=== PATIENT | female | born 1940 | race Caucasian/White ===

== ENCOUNTER 2019-04-13 11:05 | Inpatient (IN) | payer MEDICARE, MEDICAID, SELFPAY ==
[2019-04-13] VITALS (18 sets, daily range): BP systolic 136–194; BP diastolic 68–108; PULSE 70–98; RESP 16–32; TEMP 36.6–36.7; O2SAT 92–98; BMI 22.6
--- NOTE | 2019-04-13 11:22 | ED_ITS ---
Entered by Sharita Hale, acting as scribe for HPI - SOB/Dyspnea General: Chief Complaint: Shortness of Breath/Dyspnea Stated Complaint: SOB Time Seen by Provider: 04/13/19 11:22 Source: patient, family and RN notes reviewed Mode of arrival: wheelchair Limitations: no limitations History of Present Illness: HPI Narrative: 78 yo female presents to ED with complaints of shortness of breath. The family states the patient has been sick for 1 week. They said the patient has COPD and she has been congested. With oxygen, the patient is at 92% on 2L at triage. History is otherwise limited secondary the patient's respiratory distress. Most information is offered by family. MD elicited complaint: shortness of breath Pertinent past history: COPD Onset (ago): week(s) (1) Context: recent illness Timing: constant Severity: severe Exacerbating factors: exertion, movement and coughing Relieving factors: nothing Known history of: COPD Associated symptoms: Reports chest congestion and other (weakness); Deny abdominal pain, chest pain, diaphoresis, dizziness, extremity pain, fever(s), hemoptysis, nausea, palpitations, polydipsia, syncope or vomiting Treatment prior to arrival: oxygen Related Data: Home oxygen amount: 2 liters Review of Systems General: Reports: other (negative unless marked) Const: Denies: fever, chills, body aches, fatigue or diaphoresis Eyes: Denies: change in vision or blurry vision ENMT: Denies: throat pain, painful swallowing, hoarseness, ear pain, ear di scharge, Change in hearing or nasal discharge Card: Denies: chest pain, palpitations, irregular heart rhythm, syncope or pre-syncope Resp: Reports: productive cough, wheezing, change in phlegm color and chest congestion; Denies: non-productive cough or coughing up blood GI: Denies: abdominal pain, nausea, vomiting, vomiting blood, coffee grounds in vomit, diarrhea, constipation, cramping, blood in stool or black tarry stool : Denies: flank pain, painful urination, urinary frequency, urinary urgency, decreased urine ouput, urinary incontinence or blood in urine Musc: Denies: neck pain, back pain, extremity pain, extremity swelling, joint pain, joint swelling, joint warmth or joint stiffness Skin/Breast: Denies: rash, skin tenderness or yellow skin Neuro: Denies: headache, numbness in extremities, changes in sensation, lack of coordination, difficulty walking, dizziness, vertigo or confusion Endo: Denies: excessive thirst, tired all the time, cold intolerance, excessive sweating, flushing or hot flashes Tyson/Lymph: Denies: easy bruising, easy bleeding, petechiae or enlarged lymph nodes All/Imm: Denies: hives, throat swelling, tongue swelling, facial swelling or acute wheezing PFSH ED PFSH: Statuses (acute, chronic, etc) shown below reflect problem list status as previously entered and may not be historically accurate Medical History (Updated 04/13/19 @ 13:56 by Ronn French MD) COPD (chronic obstructive pulmonary disease) (Acute) Depression (Acute) DJD (degenerative joint disease) (Acute) Hyperlipidemia (Acute) Hypertension (Acute) Hypothyroidism (Acute) Surgical History (Updated 04/13/19 @ 13:27 by Ronn Frnech MD) History of appendectomy (Acute) History of hemorrhoidectomy (Acute) History of total abdominal hysterectomy (Acute) Social History (Updated 04/13/19 @ 13:28 by Ronn French MD) Smoking and tobacco status: current some day smoker Alcohol intake: never Substance/Drug Use: never Physical Exam Const: COMMON NORMALS: no apparent distress, oriented x3, no limitations, healthy appearing and well nourished EXAM LIMITATIONS: no altered mental status GENERAL APPEARANCE: cooperative, well kempt and well developed ORIENTATION/CONSCIOUSNESS: Yes awake HENMT: COMMON NORMALS: normocephalic, head/scalp atraumatic, hearing grossly normal bilaterally, external ears normal, EAC's normal, external nose normal and moist oral mucous membranes HEAD & SCALP: normal to inspection, normocephalic and atraumatic FACE & SINUS: normal facial exam and face symmetric NOSE: external nose normal and nares normal EXTERNAL EAR: Yes external ears normal EXTERNAL AUDITORY CANAL: EAC's normal MOUTH: oral and palatal mucosa normal and tongue normal Eye: COMMON NORMALS: PERRL, EOMs intact bilaterally, conjunctivae normal and no scleral icterus GENERAL EYE: normal appearance of both eyes and normal light reflex CONJUNCTIVA: Yes conjunctivae normal SCLERA: sclerae normal CORNEA: Yes corneas normal PUPIL: Yes PERRL DIRECT OPHTHALMOSCOPY: Yes normal light reflex Neck/C-Spine: COMMON NORMALS: full ROM, no lymphadenopathy, supple, no meningeal signs and no JVD GENERAL: Yes normal visual inspection and Yes trachea midline CERVICAL SPINE: Yes cervical ROM normal Chest: COMMONS NORMALS: inspection of chest normal and palpation of chest normal Resp: EFFORT & INSPECTION: Yes tachypneic, Yes respiratory distress, Yes pursed lip breathing, Yes actively coughing, Yes uses accessory muscles and Yes audible wheezes AUSCULTATION: rhonchi, wheezes expiratory wheezes, inspiratory wheezes and throughout and diminished lung sounds Cardio: COMMON NORMALS: no JVD, regular rate, regular rhythm, S1 normal heart sound, S2 normal heart sound, no gallops, no clicks, no murmurs and no rub JUGULAR VENOUS DISTENTION: no JVD RATE: regular rate RHYTHM: regular rhythm HEART SOUNDS: S1 normal and S2 normal GI: COMMON NORMALS: soft to palpation, non-tender, no hepatosplenomegaly and no masses INSPECTION: Yes normal to inspection PALPATION: Yes soft and Yes no hepatosplenomegaly : COMMON NORMALS: Yes no CVA tenderness BLADDER/KIDNEY EXAM: Yes no CVA tenderness Back/Pelvis: COMMON NORMALS: no CVA tenderness, thoracic and lumbar spine normal to inspection, no thoracic nor lumbar tenderness and thoraco-lumbar ROM normal Extremity: COMMON NORMALS: normal to inspection, full ROM, normal capillary refill, no joint enlargement, no clubbing, cyanosis or edema and no calf tenderness Neuro: COMMON NORMALS: oriented x3, CN's II-XII intact bilaterally, moves all extremities, no focal motor deficits and no sensory deficits noted MENINGEAL SIGNS: Yes no meningeal signs Psych: COMMON NORMALS: mental status grossly normal, thought process normal, cooperative, affect normal, speech normal and activity/motor behavior normal APPEARANCE: Yes well kempt SPEECH: Yes normal speech THOUGHT PROCESS: normal thought process Skin: COMMON NORMALS: no rashes or lesions noted, skin turgor normal, no jaundice, no petechiae and no mottling GENERAL SKIN EXAM: no rashes or lesions noted and turgor normal Course Vital Signs: Vital signs: Vital Signs Temperature 97.9 F 04/13/19 15:27 Pulse Rate 95 04/13/19 16:05 Respiratory Rate 18 04/13/19 16:05 Blood Pressure 161/68 04/13/19 15:27 Pulse Oximetry 96 04/13/19 16:05 MDM - SOB/Dyspnea MDM Narrative: Medical decision making narrative: Arrival -Esthela is a 78-year-old female who comes in with shortness of breath and cough. She denies any chest pain only a productive cough and wheezing. Differential is considerable including pneumonia, pneumothorax, CV exacerbation, congestive heart failure among others. At this time will initiate stabilization with BiPAP and treatments and evaluate for the above findings. Admit -the patient comes in with respiratory distress but is much better after DuoNeb and being on BiPAP. I believe she be able to tolerate being off BiPAP here within an hour or less. The patient though has a history of this and usually has to come into the hospital. She has increased sputum production, increased oxygen demand and so I believe she will need to be admitted for COPD exacerbation. The case was reviewed with Dr. French and he is in agreement. Lab Data: Labs: Lab Results 04/13/19 04/13/19 04/13/19 Range/Units 11:40 11:40 11:40 WBC 11.2 H (4.0-10.0) 10^3/ uL RBC 4.25 (4.1-5.3) 10^6/u L Hgb 13.2 (11.5-15.3) g/dL Hct 41.4 (37.0-47.0) % MCV 97.4 (81-99) fL MCH 31.1 (28.0-34.0) pg MCHC 31.9 (30.0-36.0) g/dL RDW 14.2 (12.1-15.1) % Plt Count 350 (130-400) 10^3/c mm MPV 10.0 (7.4-10.4) fL Neut % (Auto) 73.6 % Lymph % (Auto) 17.7 % [place] % (Auto) 7.1 % Eos % (Auto) 0.9 % Baso % (Auto) 0.3 % Neut # (Auto) 8.2 H (1.8-7.7) 10^3/u L Lymph # (Auto) 2.0 (0.8-4.8) 10^3/u L [place] # (Auto) 0.8 (0.2-0.9) 10^3/u L Eos # (Auto) 0.1 (0.0-0.8) 10^3/u L Baso # (Auto) 0.0 (0.0-0.1) 10^3/u L Nucleated RBC % (a uto) 0 % Nucleated RBCs # 0.0 /100WBC PT 12.60 (10.5-13.3) SECO NDS INR 0.94 (0.8-1.2) Specimen Type Sample Site ABG pH (7.35-7.45) ABG pCO2 (35-45) mmHg ABG pO2 (80.0-100.0) mmH g ABG HCO3 (22-26) mmol/L ABG Base Excess (-2.0-2.0) mmol/ L Froylan Test Hematocrit (37-47) % O2 Delivery Device O2 Liters/Min % FiO2 % Health Lead ID Sodium 138 (136-145) mmol/L Potassium 4.4 (3.5-5.1) mmol/L Chloride 96 L (98-107) mmol/L Carbon Dioxide 31 H (22-29) mmol/L Anion Gap 15.4 (5-19) BUN 14 (8-23) mg/dL Creatinine 0.7 (0.5-0.9) mg/dL Glucose 129 H (74-106) mg/dL Lactic Acid (0.5-2.2) mmol/L Calcium 10.0 (8.5-10.5) mg/dL Magnesium 2.1 (1.7-2.3) mg/dL Total Bilirubin 0.4 (0.15-1.2) mg/dL AST 25 (0-32) U/L ALT 19 (0-33) U/L Alkaline Phosphata se 65 (35-105) IU/L Troponin T Baselin e (0-10) ng/mL NT-Pro-B Natriuret Pep 210 (0-450) pg/mL Total Protein 7.6 (6.6-8.7) g/dL Albumin 4.2 (3.5-5.2) g/dL Globulin 3.4 (1.3-4.6) g/dL 04/13/19 04/13/19 04/13/19 Range/Units 11:40 11:40 11:50 WBC (4.0-10.0) 10^3/ uL RBC (4.1-5.3) 10^6/u L Hgb (11.5-15.3) g/dL Hct (37.0-47.0) % MCV (81-99) fL MCH (28.0-34.0) pg MCHC (30.0-36.0) g/dL RDW (12.1-15.1) % Plt Count (130-400) 10^3/c mm MPV (7.4-10.4) fL Neut % (Auto) % Lymph % (Auto) % [place] % (Auto) % Eos % (Auto) % Baso % (Auto) % Neut # (Auto) (1.8-7.7) 10^3/u L Lymph # (Auto) (0.8-4.8) 10^3/u L [place] # (Auto) (0.2-0.9) 10^3/u L Eos # (Auto) (0.0-0.8) 10^3/u L Baso # (Auto) (0.0-0.1) 10^3/u L Nucleated RBC % (a uto) % Nucleated RBCs # /100WBC PT (10.5-13.3) SECO NDS INR (0.8-1.2) Specimen Type Arterial Sample Site Radial, right ABG pH 7.44 (7.35-7.45) ABG pCO2 46.1 H (35-45) mmHg ABG pO2 73.3 L (80.0-100.0) mmH g ABG HCO3 31.3 H (22-26) mmol/L ABG Base Excess 6.2 H (-2.0-2.0) mmol/ L Froylan Test Pos Hematocrit 41.0 (37-47) % O2 Delivery Device Nc O2 Liters/Min 2.0 % FiO2 28.0 % Health Lead ID glc Sodium (136-145) mmol/L Potassium (3.5-5.1) mmol/L Chloride (98-107) mmol/L Carbon Dioxide (22-29) mmol/L Anion Gap (5-19) BUN (8-23) mg/dL Creatinine (0.5-0.9) mg/dL Glucose (74-106) mg/dL Lactic Acid 1.3 (0.5-2.2) mmol/L Calcium (8.5-10.5) mg/dL Magnesium (1.7-2.3) mg/dL Total Bilirubin (0.15-1.2) mg/dL AST (0-32) U/L ALT (0-33) U/L Alkaline Phosphata se (35-105) IU/L Troponin T Baselin e 68 H (0-10) ng/mL NT-Pro-B Natriuret Pep (0-450) pg/mL Total Protein (6.6-8.7) g/dL Albumin (3.5-5.2) g/dL Globulin (1.3-4.6) g/dL Imaging Data^: CXR: My impression: No acute cardiopulmonary findings. Changes of COPD present. EKG Data^: EKG 1: Attestation: I personally reviewed and interpreted this EKG as follows: EKG Interpretation Date: 04/13/19 EKG interpretation time: 11:56 Interpretation: Normal sinus rhythm at 86 beats a minute, LVH, nonspecific ST and T wave changes, normal intervals. Discharge Plan Discharge Patient Disposition: Placed in Observation Admit Provider: Ronn French Clinical Impression: Acute exacerbation of chronic obstructive airways disease Condition: Stable Discharge Date/Time: 04/13/19 15:11 Coding Level of Care Code ED Sole Leveling Machine Operator for Chg Fwd Exam Problem Focused The documentation recorded by the Geoffrey hull Valerie R, accurately reflects the service I personally performed and the decisions made by Eri reinoso Eli N Apr 13, 2019 11:05
--- NOTE | 2019-04-13 11:27 | XR_ITS ---
WS: [id number] CHEST XRAY TECHNIQUE: Portable chest. CLINICAL INFORMATION: cough COMPARISON: None. FINDINGS: Heart: Normal cardiac silhouette. Mild aortic calcification. Lungs: Chronic emphysematous changes. Mild chronic interstitial thickening. No acute pulmonary infilt rates. Trace pleural thickening left costophrenic angle Bones: Normal visualized bony structures. XR/XR chest 1V portable [id number] IMPRESSION: No acute chest findings
--- NOTE | 2019-04-13 11:28 | ECG_ITS ---
Measurements Intervals [place] Rate: 86 P: 73 OK: 132 QRS: 54 QRSD: 86 T: 43 QT: 348 QTc: 417 SINUS RHYTHM MODERATE VOLTAGE CRITERIA FOR LVH, CONSIDER NORMAL VARIANT [MEETS CRITERIA IN ONE ONE OF: R(aVL), S(V1), R(V5), R(V5/V6)+S(V1)] POSSIBLE SEPTAL MYOCARDIAL INFARCTION , OF INDETERMINATE AGE [30 ms Q WAVE IN V1 V1/V2] No previous ECG available for comparison Electronically Signed On 04-13-2019 20:14:22 [facility] by Abilio Brooks M.D. [email or web address]
[2019-04-13 11:49] LABS: Basophils % 0.3 %; Eosinophils # 0.1 10^3/uL (0.0-0.8); Eosinophils % 0.9 %; Hematocrit 41.4 % (37.0-47.0); Hemoglobin 13.2 g/dL (11.5-15.3); Lymphocytes % 17.7 %; Mean Corpuscular HGB Conc 31.9 g/dL (30.0-36.0); Mean Corpuscular Hemoglobin 31.1 pg (28.0-34.0); Mean Corpuscular Volume 97.4 fL (81-99); Monocytes # 0.8 10^3/uL (0.2-0.9); Monocytes % 7.1 %; Neutrophils # 8.2 10^3/uL (1.8-7.7); Neutrophils % 73.6 %; Nucleated Red Blood Cells % 0 %; Platelet Count 350 10^3/cmm (130-400); Red Blood Count 4.25 10^6/uL (4.1-5.3); Red Cell Distribution Width 14.2 % (12.1-15.1); White Blood Count 11.2 10^3/uL (4.0-10.0)
[2019-04-13] MEDS: ipratropium-albuterol 3 mL Neb 9 ML INHALATION (11:53)
[2019-04-13 12:03] LABS: ABG PCO2 46.1 mmHg (35-45); ABG PH Result 7.44 (7.35-7.45); Base Excess ABG 6.2 mmol/L (-2.0-2.0); Blood Gas Allen Test Pos; Blood Gas Operator Identificat glc; Blood Gas Sample Site Radial, right; Blood Gas Sample Type Arterial; HCO3 ABG 31.3 mmol/L (22-26); Oxygen Device NC; PO2 ABG 73.3 mmHg (80.0-100.0)
[2019-04-13 12:11] LABS: Lactic Sepsis W/Reflex 1.3 mmol/L (0.5-2.2); Troponin(5th) Baseline 68 ng/mL (0-10)
[2019-04-13 12:13] LABS: INR 0.94 (0.8-1.2)
[2019-04-13 12:18] LABS: Alanine Aminotransferase 19 U/L (0-33); Albumin Level 4.2 g/dL (3.5-5.2); Alkaline Phosphatase 65 IU/L (35-105); Anion Gap 15.4 (5-19); Aspartate Amino Transferase 25 U/L (0-32); Blood Urea Nitrogen 14 mg/dL (8-23); Carbon Dioxide 31 mmol/L (22-29); Chloride 96 mmol/L (98-107); Globulin 3.4 g/dL (1.3-4.6); Glucose 129 mg/dL (74-106); Magnesium 2.1 mg/dL (1.7-2.3); NT Pro B Type Natriuretic Pept 210 pg/mL (0-450); Potassium 4.4 mmol/L (3.5-5.1); Sodium 138 mmol/L (136-145); Total Bilirubin 0.4 mg/dL (0.15-1.2); Total Protein 7.6 g/dL (6.6-8.7)
[2019-04-13] MEDS: sodium chloride 0.9% 1,000 ML 100 ML IV ×3 (12:31→23:38)
[2019-04-13] MEDS: doxycycline 100 MG in sodium chloride 0.9% (plus) 100 ML IV (12:32)
--- NOTE | 2019-04-13 13:26 | P.HP_ITS ---
Providers/Chief Complaint Chief Complaint: SOB History of Present Illness Catrina BARAJAS is a 78 year old female that presents to the emergency department complaining of shortness of breath. She believes it may have been going on a week. She has been having some cough but it is not been productive. No hemoptysis. Some subjective fevers. No nausea, vomiting, or diarrhea. Denies any chest pain. After arrival to the emergency department had enough work of breathing she was placed on BiPAP. Review of Systems General: Reports: 10 or more systems reviewed and unremarkable except in HPI and below Const: Reports: fever Eyes: Denies: blurry vision ENMT: Denies: throat pain Card: Denies: chest pain Resp: Reports: shortness of breath and non-productive cough GI: Denies: abdominal pain : Denies: difficulty urinating Musc: Denies: neck pain Skin/Breast: Denies: rash Neuro: Denies: headache Psych: Reports: depression Endo: Denies: excessive urination Tyson/Lymph: Denies: easy bruising All/Imm: Denies: hives Medications/Allergies Home Medications Medication Instructions Recorded Confirmed Last Taken Type albuterol sulfate [Ventolin HFA] 2 puff INHALATION Q4H PRN 04/13/19 04/13/19 Unknown History alprazolam [Xanax] 0.25 mg PO Q6H PRN 04/13/19 04/13/19 Unknown History gabapentin 100 mg PO TID PRN 04/13/19 04/13/19 Unknown History guaifenesin [Mucinex] 600 mg PO Q12H PRN 04/13/19 04/13/19 Unknown History ipratropium-albuterol 3 ml INHALATION QID PRN 04/13/19 04/13/19 Unknown History levothyroxine 50 mcg PO DAILY 04/13/19 04/13/19 04/13/19 History lisinopril 10 mg PO DAILY 04/13/19 04/13/19 04/13/19 History meloxicam [Mobic] 15 mg PO DAILY PRN 04/13/19 04/13/19 Unknown History mometasone-formoterol [Dulera] 2 puff INHALATION Q12H PRN 04/13/19 04/13/19 Unknown History potassium gluconate 99 mg PO DAILY 04/13/19 04/13/19 Unknown History sertraline [Zoloft] 50 mg PO DAILY 04/13/19 04/13/19 Unknown History theophylline 300 mg PO BEDTIME 04/13/19 04/13/19 Unknown History Allergies Allergy/AdvReac Type Severity Reaction Status Date / Time Sulfa (Sulfonamide Allergy ALGY-Rash Verified 04/13/19 11:21 Antibiotics) PFSH Acute 2 PFSH: Statuses (acute, chronic, etc) shown below reflect problem list status as previously entered and may not be historically accurate Medical History (Updated 04/13/19 @ 13:56 by Ronn French MD) COPD (chronic obstructive pulmonary disease) (Acute) Depression (Acute) DJD (degenerative joint disease) (Acute) Hyperlipidemia (Acute) Hypertension (Acute) Hypothyroidism (Acute) Surgical History (Updated 04/13/19 @ 13:27 by Ronn French MD) History of appendectomy (Acute) History of hemorrhoidectomy (Acute) History of total abdominal hysterectomy (Acute) Social History (Updated 04/13/19 @ 13:28 by Ronn French MD) Smoking and tobacco status: current some day smoker Alcohol intake: never Substance/Drug Use: never Vitals/I&O/Wt Last Vital Signs Temp 97.9 F 04/13/19 11:16 Pulse 93 04/13/19 12:35 Resp 18 04/13/19 12:35 BP 136/84 04/13/19 12:35 Pulse Ox 96 04/13/19 12:35 Weight last 48 hrs Weight 54.431 kg Physical Exam Narrative: EXAM NARRATIVE: General exam is a white female, on BiPAP, in no apparent distress HEENT: BiPAP noted Neck is supple no lymphadenopathy or thyromegaly Cardiovascular regular rate and rhythm, no murmur Lungs bilateral expiratory wheezes. Bilateral rhonchi. Abdomen is soft with positive bowel sounds. No obvious organomegaly was deferred Extremities no cyanosis clubbing or edema, cap refill brisk Skin no rash Neuro no focal deficits Data : 04/13/19 11:40 04/13/19 11:40 Micro: Microbiology 04/13/19 11:35 Blood Culture - Preliminary Blood SPECIMEN COLLECTED 04/13/19 11:40 Blood Culture - Preliminary Blood SPECIMEN COLLECTED Other data: Chest x-ray reviewed. COPD noted. No infiltrate. Atherosclerosis noted. EKG demonstrates sinus rhythm, normal axis, possible LVH. A&P Assessment and plan (1) Acute exacerbation of chronic obstructive airways disease: IV steroids Pulmonary toilet Inhaled steroids Doxycycline Wean off BiPAP as tolerated Status: Acute Code(s): J44.1 - Chronic obstructive pulmonary disease with (acute) exacerbation (2) Elevated troponin: Status: Acute Code(s): R79.89 - Other specified abnormal findings of blood chemistry (3) Acute respiratory failure with hypoxemia: Status: Acute Code(s): J96.01 - Acute respiratory failure with hypoxia Additional A&P Information Hypertension, continue home meds Hyperlipidemia Hypothyroidism Depression Tobacco dependency, counseled on abstinence Lovenox for DVT prophylaxis Expect hospital stay of 2 to 4 days. Attestations Medical Necessity Statement*: Will need greater than 2 midnight stay secondary to severe COPD exacerbation requiring BiPAP Coding Level of Care Code Acute Fiberglass Luggage Molder for Shannan Fwwarner Diagnoses Acute exacerbation of chronic obstructive airways disease J44.1 Elevated troponin R79.89 Acute respiratory failure with hypoxemia J96.01
[2019-04-13 13:47] LABS: Influenza A by IFA Negative (Negative); Influenza B by IFA Negative (Negative)
[2019-04-13 14:16] LABS: Troponin 5 2HR 59.82 ng/mL (0-10)
[2019-04-13 14:24] LABS: Troponin 5 2HR Delta -8.18 ABS# (0-10)
[2019-04-13] MEDS: ipratropium-albuterol 3 mL Neb INHALATION ×3 (16:04→23:31)
--- NOTE | 2019-04-13 17:28 | ECG_ITS ---
Measurements Intervals [place] Rate: 94 P: 79 OR: 116 QRS: 62 QRSD: 82 T: 53 QT: 336 QTc: 420 SINUS RHYTHM WITH SHORT OR INTERVAL MODERATE VOLTAGE CRITERIA FOR LVH, CONSIDER NORMAL VARIANT [MEETS CRITERIA IN ONE OF: R(aVL), S(V1), R(V5), R(V5/V6)+S(V1)] WARNING: DATA QUALITY MAY AFFECT INTERPRETATION No previous ECG available for comparison Electronically Signed On 04-13-2019 20:17:25 MACHINE INSTALLER by Abilio Brooks M.D. [email or web address]
[2019-04-13] MEDS: doxycycline 100 mg Tablet PO (18:15)
[2019-04-13] MEDS: enoxaparin 40 mg/0.4 mL Syringe SUBCUT (18:16)
[2019-04-13 19:40] LABS: Troponin 5 6HR 48.71 ng/L (0-10)
[2019-04-14] VITALS (18 sets, daily range): BP systolic 142–193; BP diastolic 56–78; PULSE 70–100; RESP 14–24; TEMP 36.4–36.7; O2SAT 91–99
[2019-04-14] MEDS: ipratropium-albuterol 3 mL Neb INHALATION ×6 (03:14→23:39)
[2019-04-14 05:37] LABS: Hematocrit 34.2 % (37.0-47.0); Hemoglobin 11.1 g/dL (11.5-15.3); Lymphocytes # 0.9 10^3/uL (0.8-4.8); Lymphocytes % 9.4 %; Mean Corpuscular HGB Conc 32.5 g/dL (30.0-36.0); Mean Corpuscular Hemoglobin 30.2 pg (28.0-34.0); Mean Corpuscular Volume 92.9 fL (81-99); Mean Platelet Volume 10.5 fL (7.4-10.4); Monocytes # 0.3 10^3/uL (0.2-0.9); Monocytes % 3.2 %; Neutrophils # 8.3 10^3/uL (1.8-7.7); Nucleated Red Blood Cells % 0 %; Platelet Count 298 10^3/cmm (130-400); Red Blood Count 3.68 10^6/uL (4.1-5.3); Red Cell Distribution Width 13.8 % (12.1-15.1); White Blood Count 9.6 10^3/uL (4.0-10.0)
[2019-04-14 05:49] LABS: Anion Gap 11.3 (5-19); Blood Urea Nitrogen 17 mg/dL (8-23); Calcium 9.5 mg/dL (8.5-10.5); Carbon Dioxide 26 mmol/L (22-29); Chloride 103 mmol/L (98-107); Glucose 168 mg/dL (65-115); Osmolality Calculated 282 mOsm/kg (285-295); Potassium 4.3 mmol/L (3.5-5.1); Sodium 136 mmol/L (136-145)
[2019-04-14] MEDS: sodium chloride 0.9% 1,000 ML 100 ML IV ×2 (05:50→17:14)
[2019-04-14] MEDS: sertraline 50 mg Tablet PO (09:08)
[2019-04-14] MEDS: lisinopril 10 mg Tablet PO (09:08)
[2019-04-14] MEDS: levothyroxine 50 mcg Tablet PO (09:08)
[2019-04-14] MEDS: doxycycline 100 mg Tablet PO ×2 (09:08→21:41)
[2019-04-14] MEDS: ALPRAZolam 0.25 mg Tablet PO ×2 (10:02→15:58)
--- NOTE | 2019-04-14 11:36 | PC.RESP ---
Patient given information on Smoking Cessation and Pulmonary Rehab.
--- NOTE | 2019-04-14 12:05 | PC.CHAP ---
Pastoral Care Encounter/Spiritual Assessment Type of Contact [] Declined senior business objects developer visit [] Patient/Family/Request visit [] Outpatient visit [] Follow-up visit [] Physician referral [] Code/Alert [x] Routine visit [] Staff referral [] Actively dying [] Patient sleeping [] Family support [] [] Out of room [] Palliative care [] [] Receiving care in room [] Pre-surgical visit [] Trauma [] Long length of stay [] ICU visit [] Other: Relational/Emotional Strength [x] Patient feels connected with others/family/visitors/staff [] Distress [] Loneliness/isolation [] Abandonment Spirituality of Patient [x Person of Nadira [] Attends Anabaptist of their Nadira [x] Believes in Prayer [] Reads Bible or Latter-Day materials [] There are Spiritual issues to be addressed Novelty Worker Interventions [x] Prayer [x] Active listening [x] Non-anxious presence [x] Spiritual/emotional support [] Crisis/trauma care [] Spiritual counseling [] Bereavement support [] Provided bereavement packet [] Provided Bible/devotional materials [] Provided toy/stuffed animal, coloring book to patient or family member [] Provided Communion [] Anointing/[place] [] Salvation [x] Completed spiritual assessment [] Other: Impact on Illness or Injury [] Angry [] Fearful [] Anxious [] Often cries [] Exhaustion [] Unable to work [x] Unable to attend bahai [] Unable to walk/stand [] Unable to read [] Unable to drive [] Unable to eat/drink [] Unable to sleep [] Unable to be with family [] Patient intubated [] Other: Summary patient tired one visitor Time spent with patient 10 min
--- NOTE | 2019-04-14 12:10 | PC.CHAP ---
Pastoral Care Encounter/Spiritual Assessment Type of Contact [] Declined occupational ther visit [] Patient/Family/Request visit [] Outpatient visit [] Follow-up visit [] Physician referral [] Code/Alert [] Routine visit [] Staff referral [] Actively dying [] Patient sleeping [] Family support [] [] Out of room [] Palliative care [] [] Receiving care in room [] Pre-surgical visit [] Trauma [] Long length of stay [] ICU visit [] Other: Relational/Emotional Strength [] Patient feels connected with others/family/visitors/staff [] Distress [] Loneliness/isolation [] Abandonment Spirituality of Patient [] Person of Nadira [] Attends Confucianist of their Nadira [] Believes in Prayer [] Reads Bible or Denominational materials [] There are Spiritual issues to be addressed Cell Phone Repair Technician Interventions [] Prayer [] Active listening [] Non-anxious presence [] Spiritual/emotional support [] Crisis/trauma care [] Spiritual counseling [] Bereavement support [] Provided bereavement packet [] Provided Bible/devotional materials [] Provided toy/stuffed animal, coloring book to patient or family member [] Provided Communion [] Anointing/[place] [] Salvation [] Completed spiritual assessment [] Other: Impact on Illness or Injury [] Angry [] Fearful [] Anxious [] Often cries [] Exhaustion [] Unable to work [] Unable to attend advent [] Unable to walk/stand [] Unable to read [] Unable to drive [] Unable to eat/drink [] Unable to sleep [] Unable to be with family [] Patient intubated [] Other: Summary Time spent with patient
--- NOTE | 2019-04-14 15:10 | P.PN_ITS ---
Subjective Subjective: Interval history: Catrina reports she is still significantly short of breath, but perhaps a little bit better. Still coughing some but it is not productive. No chest pain. Medications: Reviewed: Yes Vitals/I&O/Wt Last Vital Signs Temp 97.6 F 04/14/19 11:32 Pulse 89 04/14/19 11:32 Resp 18 04/14/19 11:32 BP 178/67 04/14/19 11:32 Pulse Ox 98 04/14/19 11:32 04/14/19 04/14/19 04/14/19 06:59 14:59 22:59 Intake Total 620 / 1620 600 / 600 Output Total 400 / 750 1100 / 1100 Balance 220 / 870 -500 / -500 Weight last 48 hrs Weight 54.431 kg Physical Exam Narrative: EXAM NARRATIVE: General exam is mild respiratory distress Cardiovascular regular rate and rhythm without murmur Lungs bilateral expiratory wheezes. A few rhonchi Abdomen is soft positive bowel sounds Extremities no cyanosis clubbing or edema Data : 04/14/19 05:20 04/14/19 05:20 Micro: Microbiology 04/13/19 11:40 Blood Culture - Preliminary Blood NEGATIVE TO DATE 04/13/19 11:35 Blood Culture - Preliminary Blood NEGATIVE TO DATE A&P Assessment and plan (1) Acute exacerbation of chronic obstructive airways disease: Decrease IV steroids Continue pulmonary toilet Inhaled steroids Continue doxycycline Wean off BiPAP as tolerated Wean oxygen as tolerated Status: Acute Code(s): J44.1 - Chronic obstructive pulmonary disease with (acute) exacerbation (2) Elevated troponin: Type II. No chest pain. Status: Acute Code(s): R79.89 - Other specified abnormal findings of blood chemistry (3) Acute respiratory failure with hypoxemia: Improving Status: Acute Code(s): J96.01 - Acute respiratory failure with hypoxia Additional A&P Information Hypertension, continue home meds Hyperlipidemia Hypothyroidism Depression Tobacco dependency, counseled on abstinence Lovenox for DVT prophylaxis Attestations Medical Necessity Statement*: Needs continued hospital stay for pulmonary toilet, IV steroids secondary to COPD exacerbation Coding Level of Care Code Acute Funeral Limousine Driver for Eriberto Fwwarner Diagnoses Acute exacerbation of chronic obstructive airways disease J44.1 Elevated troponin R79.89 Acute respiratory failure with hypoxemia J96.01
[2019-04-14] MEDS: enoxaparin 40 mg/0.4 mL Syringe SUBCUT (21:41)
[2019-04-15] VITALS (19 sets, daily range): BP systolic 156–192; BP diastolic 60–80; PULSE 73–89; RESP 16–26; TEMP 36.3–37.1; O2SAT 93–99
[2019-04-15] MEDS: sodium chloride 0.9% 1,000 ML 100 ML IV ×3 (02:23→23:27)
[2019-04-15] MEDS: ipratropium-albuterol 3 mL Neb INHALATION ×6 (03:17→23:33)
[2019-04-15 04:40] LABS: Basophils % 0.2 %; Hemoglobin 11.1 g/dL (11.5-15.3); Lymphocytes # 1.6 10^3/uL (0.8-4.8); Lymphocytes % 8.7 %; Mean Corpuscular HGB Conc 31.7 g/dL (30.0-36.0); Mean Corpuscular Hemoglobin 31.2 pg (28.0-34.0); Mean Corpuscular Volume 98.3 fL (81-99); Mean Platelet Volume 11.1 fL (7.4-10.4); Monocytes % 5.6 %; Neutrophils # 15.4 10^3/uL (1.8-7.7); Neutrophils % 85.1 %; Nucleated Red Blood Cells % 0 %; Platelet Count 299 10^3/cmm (130-400); Red Blood Count 3.56 10^6/uL (4.1-5.3); Red Cell Distribution Width 14.1 % (12.1-15.1); White Blood Count 18.1 10^3/uL (4.0-10.0)
[2019-04-15 04:55] LABS: Anion Gap 11.1 (5-19); Blood Urea Nitrogen 23 mg/dL (8-23); Calcium 9.1 mg/dL (8.5-10.5); Carbon Dioxide 28 mmol/L (22-29); Chloride 103 mmol/L (98-107); Glucose 123 mg/dL (65-115); Osmolality Calculated 284 mOsm/kg (285-295); Potassium 4.1 mmol/L (3.5-5.1); Sodium 138 mmol/L (136-145)
[2019-04-15] MEDS: ALPRAZolam 0.25 mg Tablet PO ×2 (07:27→23:05)
[2019-04-15] MEDS: lisinopril 10 mg Tablet PO (09:12)
[2019-04-15] MEDS: levothyroxine 50 mcg Tablet PO (09:12)
[2019-04-15] MEDS: doxycycline 100 mg Tablet PO ×2 (09:12→17:19)
[2019-04-15] MEDS: sertraline 50 mg Tablet PO (09:13)
[2019-04-15] MEDS: enoxaparin 40 mg/0.4 mL Syringe SUBCUT (17:19)
--- NOTE | 2019-04-15 18:03 | PM.PN ---
Subjective Subjective: Interval history: She is still coughing. She has not been up out of her bed as she says has been asked to only walk with assistance due to risk of falls. She is fairly confident that she would do well on return home, and states that home health and her family checking up on her would be enough. She initially declines physical therapy, however, is agreeable given she has not been out of bed, and does agree that she is lost quite a bit of her stamina. Vitals/I&O/Wt Last Vital Signs Temp 97.3 F L 04/15/19 15:28 Pulse 86 04/15/19 15:28 Resp 16 04/15/19 15:28 BP 192/80 04/15/19 15:28 Pulse Ox 95 04/15/19 15:28 04/15/19 04/15/19 04/15/19 06:59 14:59 22:59 Intake Total 1065 / 3055 2120 / 2120 Output Total 1200 / 3400 2700 / 2700 Balance -135 / -345 -580 / -580 Physical Exam Const: COMMON NORMALS: no apparent distress and oriented x3 GENERAL APPEARANCE: frail appearing HENMT: COMMON NORMALS: oropharynx normal Neck/C-Spine: COMMON NORMALS: no JVD Resp: COMMON NORMALS: normal respiratory effort AUSCULTATION: wheezes lower bilaterally and diminished lung sounds Cardio: COMMON NORMALS: no JVD, regular rhythm, S1 normal heart sound, S2 normal heart sound and no murmurs RHYTHM: regular rhythm HEART SOUNDS: S1 normal and S2 normal GI: COMMON NORMALS: normal to inspection, nondistended, normoactive bowel sounds, soft to palpation and non-tender PALPATION: Yes soft Extremity: COMMON NORMALS: no joint enlargement and no pedal edema Neuro: COMMON NORMALS: oriented x3 and moves all extremities Skin: COMMON NORMALS: no rashes or lesions noted GENERAL SKIN EXAM: no rashes or lesions noted Data : 04/15/19 03:37 04/15/19 03:37 A&P Assessment and plan (1) Acute exacerbation of chronic obstructive airways disease: She notes very slight improvement. She still coughing, cannot state how she does with exertion as she has not been out of bed much apart from to the commode with assistance. She is still having bilateral wheezing, diminished air entry, however, is moving air, and compared to prior description appears to be doing better. For now continue IV steroid for tonight, will attempt to transition to oral steroids tomorrow. She is somewhat reluctant, but agreeable for assessment by physical therapy as she has not been out of bed, and we do not have a good idea of her current functioning should she be returning home within the next couple days. She does state that her family is living very close and would be taking turns checking up on her in addition to home health. Continue doxycycline. Breathing treatments. Wean off BiPAP as tolerated Wean oxygen as tolerated Status: Acute Code(s): J44.1 - Chronic obstructive pulmonary disease with (acute) exacerbation (2) Elevated troponin: Mismatch and demand and supply suspected. She does not have chest pain. Status: Acute Code(s): R79.89 - Other specified abnormal findings of blood chemistry (3) Acute respiratory failure with hypoxemia: Improving Status: Acute Code(s): J96.01 - Acute respiratory failure with hypoxia Additional A&P Information Hypertension, continue home meds. Blood pressure elevated, this afternoon 192/80. Continue lisinopril, cardiac diet. Will add amlodipine. Hyperlipidemia Hypothyroidism Depression Tobacco dependency, continue to encourage cessation Lovenox for DVT prophylaxis Attestations Medical Necessity Statement*: Continue admission for assessment of exacerbation of COPD, optimization of medications for poorly controlled hypertension. Coding Level of Care Code Acute Schedule Announcer for Shannan Coombs Diagnoses Acute exacerbation of chronic obstructive airways disease J44.1 Elevated troponin R79.89 Acute respiratory failure with hypoxemia J96.01
[2019-04-15] MEDS: amlodipine 5 mg Tablet PO (18:59)
[2019-04-16] VITALS (19 sets, daily range): BP systolic 146–184; BP diastolic 62–89; PULSE 72–98; RESP 4–24; TEMP 36.4–36.8; O2SAT 91–178
[2019-04-16] MEDS: ipratropium-albuterol 3 mL Neb INHALATION ×6 (03:46→23:44)
[2019-04-16 04:59] LABS: Basophils % 0.1 %; Hematocrit 38.1 % (37.0-47.0); Hemoglobin 12.3 g/dL (11.5-15.3); Lymphocytes # 2.8 10^3/uL (0.8-4.8); Lymphocytes % 14.7 %; Mean Corpuscular HGB Conc 32.3 g/dL (30.0-36.0); Mean Corpuscular Hemoglobin 30.2 pg (28.0-34.0); Mean Corpuscular Volume 93.6 fL (81-99); Mean Platelet Volume 10.4 fL (7.4-10.4); Monocytes # 1.3 10^3/uL (0.2-0.9); Monocytes % 6.9 %; Neutrophils # 14.7 10^3/uL (1.8-7.7); Neutrophils % 77.9 %; Nucleated Red Blood Cells % 0 %; Platelet Count 327 10^3/cmm (130-400); Red Blood Count 4.07 10^6/uL (4.1-5.3); Red Cell Distribution Width 13.9 % (12.1-15.1); White Blood Count 18.9 10^3/uL (4.0-10.0)
[2019-04-16 05:18] LABS: Anion Gap 11.6 (5-19); Blood Urea Nitrogen 14 mg/dL (8-23); Calcium 9.6 mg/dL (8.5-10.5); Carbon Dioxide 32 mmol/L (22-29); Chloride 98 mmol/L (98-107); Glucose 101 mg/dL (65-115); Osmolality Calculated 282 mOsm/kg (285-295); Potassium 3.6 mmol/L (3.5-5.1); Sodium 138 mmol/L (136-145)
[2019-04-16] MEDS: doxycycline 100 mg Tablet PO ×2 (09:50→17:04)
[2019-04-16] MEDS: lisinopril 10 mg Tablet PO (09:50)
[2019-04-16] MEDS: amlodipine 5 mg Tablet PO (09:50)
[2019-04-16] MEDS: levothyroxine 50 mcg Tablet PO (09:50)
--- NOTE | 2019-04-16 09:51 | PC.SOCIAL ---
IMM Update Pg 2 of IMM given and explained to patient who voiced understanding. Signed, dated, timed, and placed in chart. Copy provided to patient.
[2019-04-16] MEDS: saline nasal spray 44mL Btl 1 SPRAY NASAL (12:59)
[2019-04-16] MEDS: enoxaparin 40 mg/0.4 mL Syringe SUBCUT (17:03)
--- NOTE | 2019-04-16 18:56 | PM.PN ---
Subjective Subjective: Interval history: This morning she reports she is feeling worse compared to yesterday. More short of breath, needing BiPAP support. Vitals/I&O/Wt Last Vital Signs Temp 97.6 F 04/16/19 16:00 Pulse 79 04/16/19 16:00 Resp 18 04/16/19 16:00 BP 178/64 04/16/19 16:00 Pulse Ox 178 H 04/16/19 16:00 04/16/19 04/16/19 04/16/19 06:59 14:59 22:59 Intake Total 120 / 120 Output Total 825 / 6025 1300 / 1300 Balance -825 / -2665 -1180 / -1180 Physical Exam Const: COMMON NORMALS: no apparent distress and oriented x3 GENERAL APPEARANCE: frail appearing HENMT: COMMON NORMALS: oropharynx normal Neck/C-Spine: COMMON NORMALS: no JVD Resp: COMMON NORMALS: normal respiratory effort AUSCULTATION: wheezes lower bilaterally and diminished lung sounds Cardio: COMMON NORMALS: no JVD, regular rhythm, S1 normal heart sound, S2 normal heart sound and no murmurs RHYTHM: regular rhythm HEART SOUNDS: S1 normal and S2 normal GI: COMMON NORMALS: normal to inspection, nondistended, normoactive bowel sounds, soft to palpation and non-tender PALPATION: Yes soft Extremity: COMMON NORMALS: no joint enlargement and no pedal edema Neuro: COMMON NORMALS: oriented x3 and moves all extremities Skin: COMMON NORMALS: no rashes or lesions noted GENERAL SKIN EXAM: no rashes or lesions noted Data : 04/16/19 04:20 04/16/19 04:20 A&P Assessment and plan (1) Acute exacerbation of chronic obstructive airways disease: In terms of hypoxia appears has been close to her baseline oxygen, although this afternoon did require BiPAP support due to worsening shortness of breath. Reported today was feeling worse. Persistent tightness, wheezing, although wheezing slightly better today on auscultation. This morning was reported sounding wet. IV fluid discontinued. For now continue IV steroid, will not decrease dose as she appears is back again on 2 L nasal cannula. Will add DuoNeb as needed. Suspect worsening of dyspnea was secondary to IV fluid and a degree of fluid overload. Will reassess with chest x-ray in the morning. Status: Acute Code(s): J44.1 - Chronic obstructive pulmonary disease with (acute) exacerbation (2) Elevated troponin: Status: Acute Code(s): R79.89 - Other specified abnormal findings of blood chemistry (3) Acute respiratory failure with hypoxemia: Status: Acute Code(s): J96.01 - Acute respiratory failure with hypoxia Additional A&P Information Hypertension, continue home meds. Blood pressure better, but still elevated. Will increase amlodipine dose to 10 mg. Continue lisinopril, cardiac diet. Hyperlipidemia Hypothyroidism Depression Tobacco dependency, continue to encourage cessation Lovenox for DVT prophylaxis Attestations Medical Necessity Statement*: Requires continue admission for assessment management of COPD exacerbation. Coding Level of Care Code Acute Fiber Optic Assembly Worker for [facility] Diagnoses Acute exacerbation of chronic obstructive airways disease J44.1 Elevated troponin R79.89 Acute respiratory failure with hypoxemia J96.01
[2019-04-16] MEDS: ALPRAZolam 0.25 mg Tablet PO (20:18)
[2019-04-17] VITALS (14 sets, daily range): BP systolic 129–184; BP diastolic 63–92; PULSE 76–91; RESP 18–22; TEMP 36.4–36.9; O2SAT 92–98
--- NOTE | 2019-04-17 06:00 | XR_ITS ---
WS: [id number] ONE VIEW CHEST HISTORY: 79 years old Female with Hypoxia AP upright chest comparison 04/13/2019 FINDINGS: Lungs are hyperexpanded with diaphragm flattening. No pneumothorax, pleural effusion, consolidation/a telectasis. Cardiomediastinal silhouette and pulmonary vascular markings are unremarkable. Thoracic a avery atherosclerosis. No subdiaphragmatic free air. No fracture seen. XR/XR chest 1V portable [id number] IMPRESSION: Chronic emphysema and atherosclerosis; no acute cardiopulmonary findings.
[2019-04-17 06:09] LABS: Basophils % 0.1 %; Hematocrit 43.8 % (37.0-47.0); Hemoglobin 14.1 g/dL (11.5-15.3); Lymphocytes % 6.7 %; Mean Corpuscular HGB Conc 32.2 g/dL (30.0-36.0); Mean Corpuscular Hemoglobin 31.3 pg (28.0-34.0); Mean Corpuscular Volume 97.3 fL (81-99); Mean Platelet Volume 10.7 fL (7.4-10.4); Monocytes # 0.5 10^3/uL (0.2-0.9); Monocytes % 3.5 %; Neutrophils # 12.7 10^3/uL (1.8-7.7); Neutrophils % 89.1 %; Nucleated Red Blood Cells % 0 %; Platelet Count 366 10^3/cmm (130-400); White Blood Count 14.3 10^3/uL (4.0-10.0)
--- NOTE | 2019-04-17 06:24 | PC.NURSE ---
SHIFT SUMMARY Has rested very well tonight. Had requested a Xanax in evening and had stated had not been sleeping very well. Has had no c/o pain. O2 per NC at 2l. Has c/o SOB with exertion. Says just getting to [facility] is enough to cause SOB. Refused BIPAP this shift and no distress noted. Has occ nonprod cough but says cough has decreased.
[2019-04-17 06:33] LABS: Alanine Aminotransferase 21 U/L (0-33); Albumin Level 4.4 g/dL (3.5-5.2); Alkaline Phosphatase 60 IU/L (35-105); Anion Gap 13.3 (5-19); Aspartate Amino Transferase 19 U/L (0-32); Blood Urea Nitrogen 32 mg/dL (8-23); Calcium 10.5 mg/dL (8.5-10.5); Carbon Dioxide 34 mmol/L (22-29); Chloride 97 mmol/L (98-107); Globulin 2.8 g/dL (1.3-4.6); Glucose 136 mg/dL (65-115); Potassium 4.3 mmol/L (3.5-5.1); Sodium 140 mmol/L (136-145); Total Bilirubin 0.3 mg/dL (0.15-1.2); Total Protein 7.2 g/dL (6.6-8.7)
[2019-04-17] MEDS: ipratropium-albuterol 3 mL Neb INHALATION ×5 (07:29→20:14)
[2019-04-17] MEDS: doxycycline 100 mg Tablet PO (08:42)
[2019-04-17] MEDS: lisinopril 10 mg Tablet PO (08:42)
[2019-04-17] MEDS: levothyroxine 50 mcg Tablet PO (08:42)
[2019-04-17] MEDS: amlodipine 10 mg Tablet PO (10:29)
--- NOTE | 2019-04-17 15:22 | PM.PN ---
Subjective Subjective: Interval history: She reports feeling worse than yesterday . Gets short of breath very easily with minimal activity. Vitals/I&O/Wt Last Vital Signs Temp 97.9 F 04/17/19 12:00 Pulse 91 04/17/19 12:00 Resp 22 H 04/17/19 12:00 BP 155/63 04/17/19 12:00 Pulse Ox 93 04/17/19 12:00 04/17/19 04/17/19 04/17/19 06:59 14:59 22:59 Intake Total 200 / 320 200 / 200 Output Total 350 / 1850 200 / 200 Balance -150 / -1530 0 / 0 Physical Exam Const: COMMON NORMALS: no apparent distress and oriented x3 GENERAL APPEARANCE: frail appearing HENMT: COMMON NORMALS: oropharynx normal Neck/C-Spine: COMMON NORMALS: no JVD Resp: COMMON NORMALS: normal respiratory effort AUSCULTATION: wheezes and diminished lung sounds Cardio: COMMON NORMALS: no JVD, regular rhythm, S1 normal heart sound, S2 normal heart sound and no murmurs RHYTHM: regular rhythm HEART SOUNDS: S1 normal and S2 normal GI: COMMON NORMALS: normal to inspection, nondistended, normoactive bowel sounds, soft to palpation and non-tender PALPATION: Yes soft Extremity: COMMON NORMALS: no joint enlargement and no pedal edema Neuro: COMMON NORMALS: oriented x3 and moves all extremities Skin: COMMON NORMALS: no rashes or lesions noted GENERAL SKIN EXAM: no rashes or lesions noted Data : 04/17/19 05:39 04/17/19 05:39 A&P Assessment and plan (1) Acute exacerbation of chronic obstructive airways disease: Today feeling worse. Again wheezing with diminished air entry. Will increase her steroids back up to 60 mg every 6 hours by IV. Will change doxycycline to Rocephin. Will assess with modified barium swallow evaluation for occult aspiration. No pneumonia visible on chest x-ray repeated today 04/17. Status: Acute Code(s): J44.1 - Chronic obstructive pulmonary disease with (acute) exacerbation (2) Elevated troponin: Status: Acute Code(s): R79.89 - Other specified abnormal findings of blood chemistry (3) Acute respiratory failure with hypoxemia: Status: Acute Code(s): J96.01 - Acute respiratory failure with hypoxia Additional A&P Information Hypertension, continue home meds. Blood pressure is somewhat better. Continue amlodipine, lisinopril, cardiac diet. Hyperlipidemia Hypothyroidism Depression Tobacco dependency, continue to encourage cessation Lovenox for DVT prophylaxis Attestations Medical Necessity Statement*: Continue admission for assessment management of worsening exacerbation of COPD. Coding Level of Care Code Acute Money Manager for Shannan Ricksd Exam Problem Focused Diagnoses Acute exacerbation of chronic obstructive airways disease J44.1 Elevated troponin R79.89 Acute respiratory failure with hypoxemia J96.01
[2019-04-17] MEDS: enoxaparin 40 mg/0.4 mL Syringe SUBCUT (17:28)
[2019-04-17] MEDS: cefTRIAXone 1,000 MG in sodium chloride 0.9% (plus) 50 ML 100 MG IV (17:29)
[2019-04-17] MEDS: ALPRAZolam 0.25 mg Tablet PO (22:00)
[2019-04-18] VITALS (8 sets, daily range): BP systolic 128–173; BP diastolic 70–78; PULSE 80–85; RESP 16–22; TEMP 36.5–36.9; O2SAT 92–97
[2019-04-18 06:01] LABS: Basophils % 0.1 %; Hematocrit 40.9 % (37.0-47.0); Hemoglobin 13.2 g/dL (11.5-15.3); Lymphocytes # 1.1 10^3/uL (0.8-4.8); Lymphocytes % 8.2 %; Mean Corpuscular HGB Conc 32.3 g/dL (30.0-36.0); Mean Corpuscular Hemoglobin 30.3 pg (28.0-34.0); Mean Corpuscular Volume 93.8 fL (81-99); Mean Platelet Volume 10.8 fL (7.4-10.4); Monocytes # 0.6 10^3/uL (0.2-0.9); Monocytes % 4.4 %; Neutrophils # 11.2 10^3/uL (1.8-7.7); Neutrophils % 86.8 %; Nucleated Red Blood Cells % 0 %; Platelet Count 338 10^3/cmm (130-400); Red Blood Count 4.36 10^6/uL (4.1-5.3); Red Cell Distribution Width 13.9 % (12.1-15.1); White Blood Count 12.8 10^3/uL (4.0-10.0)
[2019-04-18 06:25] LABS: Anion Gap 13.3 (5-19); Blood Urea Nitrogen 31 mg/dL (8-23); Calcium 10.2 mg/dL (8.5-10.5); Carbon Dioxide 34 mmol/L (22-29); Chloride 96 mmol/L (98-107); Glucose 149 mg/dL (65-115); Osmolality Calculated 288 mOsm/kg (285-295); Potassium 4.3 mmol/L (3.5-5.1); Sodium 139 mmol/L (136-145)
[2019-04-18] MEDS: lisinopril 10 mg Tablet PO (09:03)
[2019-04-18] MEDS: amlodipine 10 mg Tablet PO (09:03)
[2019-04-18] MEDS: levothyroxine 50 mcg Tablet PO (09:03)
[2019-04-18] MEDS: ALPRAZolam 0.25 mg Tablet PO (09:04)
[2019-04-18] MEDS: ipratropium-albuterol 3 mL Neb INHALATION ×2 (09:14→11:07)
--- NOTE | 2019-04-18 10:16 | PC.SOCIAL ---
IMM Update Pg 2 of IMM given and explained to patient who verbalized understanding. Signed, dated, and timed, and placed in chart. Copy provided to patient.
--- NOTE | 2019-04-18 14:50 | PM.DCS ---
Discharge Providers Date of Admission: 04/13/19 12:40 Date of Discharge: April 18, 2019 Attending Provider at Admission: Ronn French MD Attending Provider at Discharge: Harrison Rivera Primary Care Provider: Zhanna Crawford, Enma at Discharge Discharge Diagnosis (1) Acute exacerbation of chronic obstructive airways disease: Status: Acute (2) Elevated troponin: Status: Acute (3) Acute respiratory failure with hypoxemia: Status: Acute Reason for Visit Reason for Visit: Reason For Visit: COPD EXACERBATION Hospital Course Hospital Course: 78-year-old lady with history of COPD, on chronic oxygen at home 2 L by nasal cannula, HTN, HLD, hypothyroidism, DJD, depression was admitted after presenting with shortness of breath with severe exacerbation of COPD. Initially requiring BiPAP support, but weaned down from BiPAP. Treated with IV steroids, doxycycline, breathing treatments, continued on oxygen. Her O2 requirements gradually decreased, and she was down to 2 L, however, getting dyspneic easily, with persistent wheezing, decreased air entry in the lungs. Chest x-ray without evidence of pneumonia. Initially was taper down on steroid, however, this had to be increased after she was feeling worse. Today with improvement, and swallowing study was ordered for assessment of possible aspiration contributing to protracted symptoms, however, today she preferred to return home where she is more comfortable. She will return with a 12-day prednisone taper. She has a nebulizer at home, and uses nebulizer solution of albuterol. We will give her also nebulization but at night and ipratropium. She will continue on 2 L of oxygen as well. Due to her protracted course of illness, severity of COPD, recommended that she follow-up with pulmonology in office. Physical Exam Const: COMMON NORMALS: no apparent distress and oriented x3 GENERAL APPEARANCE: frail appearing HENMT: COMMON NORMALS: oropharynx normal Neck/C-Spine: COMMON NORMALS: no JVD Resp: COMMON NORMALS: normal respiratory effort AUSCULTATION: wheezes (improved today) Cardio: COMMON NORMALS: no JVD, regular rhythm, S1 normal heart sound, S2 normal heart sound and no murmurs RHYTHM: regular rhythm HEART SOUNDS: S1 normal and S2 normal GI: COMMON NORMALS: normal to inspection, nondistended, normoactive bowel sounds, soft to palpation and non-tender PALPATION: Yes soft Extremity: COMMON NORMALS: no joint enlargement and no pedal edema Neuro: COMMON NORMALS: oriented x3 and moves all extremities Skin: COMMON NORMALS: no rashes or lesions noted GENERAL SKIN EXAM: no rashes or lesions noted Discharge Data Data Completed and Pending: Completed Studies During Hospitalization Category Date Time Status XR chest 1[place] key ble [id number] Routine Exams 04/17/19 06:00 Completed XR chest 1V key ble [id number] Stat Exams 04/13/19 11:27 Completed Labs from last 24 hours 04/18/19 04/18/19 05:39 05:39 WBC 12.8 H RBC 4.36 Hgb 13.2 Hct 40.9 MCV 93.8 MCH 30.3 MCHC 32.3 RDW 13.9 Plt Count 338 MPV 10.8 H Neut % (Auto) 86.8 Lymph % (Auto) 8.2 [place] % (Auto) 4.4 Eos % (Auto) 0.0 Baso % (Auto) 0.1 Neut # (Auto) 11.2 H Lymph # (Auto) 1.1 [place] # (Auto) 0.6 Eos # (Auto) 0.0 Baso # (Auto) 0.0 Nucleated RBC % (a uto) 0 Nucleated RBCs # 0.0 Sodium 139 Potassium 4.3 Chloride 96 L Carbon Dioxide 34 H Anion Gap 13.3 BUN 31 H Creatinine 0.7 Glucose 149 H Calculated Osmolal ity 288 Calcium 10.2 Vitals: Last Vital Signs Temp 97.9 F 04/18/19 11:22 Pulse 85 04/18/19 11:22 Resp 16 04/18/19 11:22 BP 156/70 04/18/19 11:22 Pulse Ox 92 04/18/19 11:22 Discharge Plan Discharge Patient Disposition: Home, Self-Care Condition: Stable Prescriptions: New Levaquin 750 mg tablet 750 mg PO DAILY 5 Days RF: 0 prednisone 20 mg tablet See Rx Instructions .ROUTE .COMPLEX Qty: 20 RF: 0 budesonide 0.5 mg/2 mL suspension for nebulization 2 ml INHALATION Q12H Qty: 60 RF: 0 ipratropium bromide 0.02 % solution 2.5 ml INHALATION Q8H Qty: 62.5 RF: 0 Continued ipratropium-albuterol 0.5 mg-3 mg(2.5 mg base)/3 mL Solution For Nebulization 3 ml INHALATION QID PRN (Reason: Shortness Of Breath) RF: 0 Mobic 15 mg Tablet 15 mg PO DAILY PRN (Reason: unknown) RF: 0 theophylline 300 mg Tablet Extended Release 12 Hr 300 mg PO BEDTIME RF: 0 Xanax 0.25 mg Tablet 0.25 mg PO Q6H PRN (Reason: Anxiety) RF: 0 levothyroxine 50 mcg Tablet 50 mcg PO DAILY RF: 0 lisinopril 10 mg Tablet 10 mg PO DAILY RF: 0 gabapentin 100 mg Capsule 100 mg PO TID PRN (Reason: Pain) RF: 0 Ventolin HFA 90 mcg/actuation Hfa Aerosol Inhaler 2 puff INHALATION Q4H PRN (Reason: Shortness Of Breath) RF: 0 Zoloft 50 mg Tablet 50 mg PO DAILY RF: 0 Dulera 100-5 mcg/actuation Hfa Aerosol Inhaler 2 puff INHALATION Q12H PRN (Reason: unknown) RF: 0 Mucinex 600 mg Tablet Extended Release 12hr 600 mg PO Q12H PRN (Reason: Congestion) RF: 0 potassium gluconate 99 mg PO DAILY RF: 0 Discharge Orders: Discharge Order (Routine); Ordered 04/18/19 Ordered By: Harrison Rivera Referrals: Zhanna Crawford MD [Primary Care Provider] - 4-7 days (please call Friday to set up a follow up appointment) Mirella Sainz MD [Physician] - 1 week (please call Friday to set up a follow up appointment) Discharge Diet: Cardiac Discharge Activity: Oxygen as instructed Patient Instructions: Ipratropium (By breathing), Prednisone (By mouth), Levofloxacin (By mouth), Chronic Obstructive Pulmonary Disease (DC) Activity Restrictions/Additional Instructions: Continue oxygen at home as previously 2 L/min. Target oxygen saturation 88-92%. Do not resume smoking. Discharge Date/Time: 04/18/19 15:30 Discharge Attestations Time Spent in Discharge Care*: greater than 30 min Quality Metrics Clinical Quality Measures During this hospital stay, did patient experience: None Coding Level of Care Code Acute Cardiovascular Or Nurse for Shannan Fwd Exam Problem Focused Diagnoses Acute exacerbation of chronic obstructive airways disease J44.1 Elevated troponin R79.89 Acute respiratory failure with hypoxemia J96.01
== END 2019-04-18 15:30 | disposition home or self-care (01) | DRG 190 ==
LOC: ER 12:57 → MEDSURG 14:15
PROVIDERS: Admitting Provider Internal Medicine; Emergency Provider Emergency Medicine; PCP Family Medicine; Visit Provider Internal Medicine
DX: J44.1 Chronic obstructive pulmonary disease with (acute) exacerbation (principal); J96.01 Acute respiratory failure with hypoxia; E03.9 Hypothyroidism, unspecified; E78.5 Hyperlipidemia, unspecified; I10 Essential (primary) hypertension; F32.9 Major depressive disorder, single episode, unspecified; F17.210 Nicotine dependence, cigarettes, uncomplicated; R79.89 Other specified abnormal findings of blood chemistry; Z99.81 Dependence on supplemental oxygen; M19.90 Unspecified osteoarthritis, unspecified site; Z79.890 Hormone replacement therapy; Z79.899 Other long term (current) drug therapy; Z79.52 Long term (current) use of systemic steroids
CPT/HCPCS: 12345; 36415; 36600; 51798; 71045; 80048; 80053; 82803; 83605; 83735; 83880; 84484; 85025; 85610; 87040; 87804; 93005; 94640; 94660; 96372; 96375; 97110; 97161; 99284; J0696; J1650; J2930; J3490; J7030; J7050

== ENCOUNTER 2019-11-17 11:36 | Inpatient (IN) | payer MEDICARE, MEDICAID, SELFPAY ==
[2019-11-17] VITALS (10 sets, daily range): BP systolic 141–162; BP diastolic 57–96; PULSE 72–91; RESP 18–24; TEMP 36.4–36.8; O2SAT 82–98; BMI 20.7
--- NOTE | 2019-11-17 11:43 | XRR_ITS ---
PROCEDURE INFORMATION: Exam: XR Chest, 1 View Exam date and time: 11/17/2019 12:21 PM Age: 79 years old Clinical indication: Dyspnea and shortness of breath; Additional info: Dyspnea 2-3 weeks TECHNIQUE: Imaging protocol: XR of the chest Views: 1 view. COMPARISON: CR XR chest 1V portable [id number] 04/17/2019 5:05 AM FINDINGS: Lungs: There is chronic lung change. No consolidation. Pleural space: There is a small left pleural effusion. No pneumothorax. Heart/Mediastinum: Unremarkable. No cardiomegaly. Bones/joints: Unremarkable. XR/XR chest 1V portable [id number] IMPRESSION: There is a small left pleural effusion.
--- NOTE | 2019-11-17 11:44 | ECG_ITS ---
[facility] Test Date: 2019-11-17 Pat Name: Catrina BARAJAS Department: Room: Gender: Female Kennel Hand: : 1940 Requested By: Renetta Gonzales Order Number: [id number] Yovany MD: Lavonne Bucio M.D. Measurements Intervals [place] Rate: 72 P: 75 MD: 117 QRS: 65 QRSD: 86 T: 68 QT: 369 QTc: 404 Interpretive Statements SINUS RHYTHM WITH SHORT MD INTERVAL MODERATE VOLTAGE CRITERIA FOR LVH, CONSIDER NORMAL VARIANT [MEETS CRITERIA IN ONE OF: R(aVL), S(V1), R(V5), R(V5/V6)+S(V1)] POSSIBLE ANTEROSEPTAL MYOCARDIAL INFARCTION , OF INDETERMINATE AGE [30 ms Q WAVE IN V1-V4] Compared to ECG 06/06/2017 19:46:29 Short MD interval now present Myocardial infarct finding still present Electronically Signed On 11-17-2019 19:53:27 CDT by Lavonne Bucio M.D. [email or web address]
--- NOTE | 2019-11-17 12:02 | ED_ITS ---
HPI - SOB/Dyspnea General: Chief Complaint: Shortness of Breath/Dyspnea Stated Complaint: sob Time Seen by Provider: 11/17/19 11:52 Source: patient and family Limitations: no limitations History of Present Illness: HPI Narrative: Mrs. Rouse is a nice 79-year-old female who comes in complaining of shortness of breath. She has a history of COPD and uses oxygen at all times. She is not had increase her oxygen use but states that she is wheezing and has a dry nonproductive cough. She denies any chest pain or leg swelling or edema. The patient states any type of exertion makes her breathing worse. Patient does not believe she is had a fever she is not been chilled. She denies any loss of sense of taste or loss of sense of smell. She states that she gets flareups of her COPD from time to time and this feels like 1 of those flareups. Patient is unaware of any exacerbating or alleviating factors other than the exertion making her symptoms worse. She is try to use her albuterol inhaler at home but this has not helped resolve her symptoms. Associated symptoms: Reports chest congestion; Deny abdominal pain, chest pain, diaphoresis, dizziness, extremity pain, fever(s), hemoptysis, lightheadedness, nausea, orthopnea, palpitations, syncope or vomiting Review of Systems Const: Denies: fever(s), chills, body aches, fatigue, malaise or diaphoresis Eyes: Denies: change in vision, blurry vision, photophobia, eye discomfort, eye discharge or eye redness ENMT: Denies: throat pain, odynophagia, hoarseness, swelling of lips/tongue, ear or mastoid pain, ear discharge, change in hearing or nasal discharge Card: Denies: chest pain, palpitations, irregular heart rhythm, edema, lightheadedness, syncope, pre-syncope, dyspnea on exertion or orthopnea Resp: Reports: non-productive cough, wheezing and chest congestion; Denies: productive cough or hemoptysis GI: Denies: abdominal pain, nausea, vomiting, hematemesis, coffee ground emesis, heartburn, diarrhea, constipation, GI cramping, hematochezia or melena : Denies: flank pain, dysuria, urinary frequency, urinary urgency or hematuria Musc: Denies: neck pain, back pain, extremity pain, extremity swelling, joint pain, joint swelling, joint redness, joint warmth or joint stiffness Skin/Breast: Denies: rash, pruritus, erythema or skin tenderness Neuro: Denies: headache(s), numbness in extremities, weakness in extremities, sensory changes, lack of coordination, difficulty walking, dizziness, vertigo, confusion, Slurred speech present or seizure-like activity Tyson/Lymph: Denies: easy bruising, easy bleeding, petechiae, purpura or enlarged lymph nodes All/Imm: Denies: urticaria, throat swelling, tongue swelling, facial swelling or acute wheezing PFSH ED PFSH: Medical History COPD (chronic obstructive pulmonary disease) Depression DJD (degenerative joint disease) Hyperlipidemia Hypertension Hypothyroidism Surgical History History of appendectomy History of hemorrhoidectomy History of total abdominal hysterectomy Social History Smoking and tobacco status: current some day smoker Alcohol intake: never Physical Exam Const: COMMON NORMALS: no acute distress, patient oriented x3, no limitations, healthy appearing and well nourished GENERAL APPEARANCE: cooperative, well kempt and well developed HENMT: COMMON NORMALS: normocephalic, atraumatic, external ears normal, EAC's normal and Normal external nose present HEAD & SCALP: normal to inspection, normocephalic and atraumatic FACE & SINUS: normal facial exam and face symmetric NOSE: Normal external nose present and Normal nares present EXTERNAL EAR: Yes external ears normal EXTERNAL AUDITORY CANAL: EAC's normal MOUTH: Normal oral and palatal mucosa present, lip normal and tongue normal Eye: COMMON NORMALS: Equal, round and reactive pupils present and conjunctivae normal GENERAL EYE: appearance normal, both eyes and all related structures ALIGNMENT: Yes alignment normal PERIORBITAL: periorbital findings normal EYELID: eyelids normal CONJUNCTIVA: Yes conjunctivae normal SCLERA: sclerae normal PUPIL: Yes Equal, round and reactive pupils present Neck/C-Spine: COMMON NORMALS: full ROM, no lymphadenopathy, supple, no meningeal signs and no JVD GENERAL: Yes normal visual inspection and Yes trachea midline Chest: COMMONS NORMALS: normal inspection of the chest and normal palpation of entire chest wall Resp: COMMON NORMALS: No use of accessory muscles EFFORT & INSPECTION: Yes symmetric chest movement, Yes respiratory distress, Yes labored, Yes Actively coughing and Yes uses accessory muscles AUSCULTATION: no crackles, no rales, rhonchi and wheezes Cardio: COMMON NORMALS: no JVD, regular rate, regular rhythm, S1 normal heart sound present and S2 normal heart sound present RATE: regular rate RHYTHM: regular rhythm HEART SOUNDS: S1 normal heart sound present, S2 normal heart sound present, no click, no gallops, no murmurs, no rubs and abnormal split S2 GI: COMMON NORMALS: Soft to palpation and No hepatosplenomegaly present PALPATION: Yes Soft to palpation, No Tenderness to palpation present (GI), No Guarding due to palpation present (GI), No Rigid due to palpation, Yes No hepatosplenomegaly present, No Hernia present, No Palpable mass present and No Pulsatile mass present : COMMON NORMALS: Yes no CVA tenderness BLADDER/KIDNEY EXAM: Yes no CVA tenderness EXTERNAL FEMALE EXAM: No Hernia present Back/Pelvis: COMMON NORMALS: no CVA tenderness, thoracic and lumbar spine normal to inspection, no thoracic nor lumbar tenderness and thoraco-lumbar ROM normal Extremity: COMMON NORMALS: normal to inspection, full ROM, capillary refill normal, no joint enlargement, no clubbing, cyanosis or edema and no calf tenderness Neuro: COMMON NORMALS: patient oriented x3, CN's II-XII intact bilaterally, moves all extremities, no focal motor deficits and no sensory deficits noted MENINGEAL SIGNS: Yes no meningeal signs SPEECH: speech normal Psych: COMMON NORMALS: mental status grossly normal, Normal thought process present, cooperative, normal affect, speech normal and activity/motor behavior normal APPEARANCE: Yes well kempt SPEECH: Yes normal speech THOUGHT PROCESS: Normal thought process present Skin: COMMON NORMALS: no rashes or lesions noted, turgor normal, no jaundice, no petechiae and no mottling GENERAL SKIN EXAM: no rashes or lesions noted and turgor normal Course Vital Signs: Vital signs: Vital Signs Temperature 97.6 F 11/17/19 11:40 Pulse Rate 89 11/17/19 14:21 Respiratory Rate 24 H 11/17/19 14:16 Blood Pressure 162/71 11/17/19 11:40 Pulse Oximetry 94 11/17/19 14:16 MDM - SOB/Dyspnea MDM Narrative: Medical decision making narrative: 1631 -patient is improved and her respiratory distress has resolved. Patient still has audible wheezing and conversational dyspnea. I do not believe she needs high flow nasal cannula oxygen nor BiPAP at this time. I believe she can continue with breathing treatments and steroids. I do not believe the patient will be able to go home. She is agreeing to stay she believes she will need more care. I reviewed the case in full with Dr. Mercado who is agreeable to admission. Lab Data: Attestation: I reviewed the patient's lab results. Labs: Lab Results 11/17/19 11/17/19 11/17/19 Range/Units 09:10 11:59 11:59 WBC 12.0 H (4.0-10.0) 10^3/ uL RBC 4.31 (4.1-5.3) 10^6/u L Hgb 13.3 (11.5-15.3) g/dL Hct 41.7 (37.0-47.0) % MCV 96.8 (81-99) fL MCH 30.9 (28.0-34.0) pg MCHC 31.9 (30.0-36.0) g/dL RDW 13.2 (12.1-15.1) % Plt Count 389 (130-400) 10^3/c mm MPV 9.9 (7.4-10.4) fL Neut % (Auto) 73.4 % Lymph % (Auto) 16.7 % [place] % (Auto) 7.3 % Eos % (Auto) 1.7 % Baso % (Auto) 0.6 % Neut # (Auto) 8.82 H (1.8-7.7) 10^3/u L Lymph # (Auto) 2.0 (0.8-4.8) 10^3/u L [place] # (Auto) 0.9 (0.2-0.9) 10^3/u L Eos # (Auto) 0.2 (0.0-0.8) 10^3/u L Baso # (Auto) 0.1 (0.0-0.1) 10^3/u L Nucleated RBC % (a uto) 0 % Nucleated RBCs # 0.0 /100WBC PT 12.30 (12.1-14.9) SECO NDS INR 0.89 (0.8-1.2) Specimen Type Arterial Sample Site Radial, left ABG pH 7.41 (7.35-7.45) ABG pCO2 47.8 H (35-45) mmHg ABG pO2 82.2 (80.0-100.0) mmH g ABG HCO3 30.5 H (22-26) mmol/L ABG Base Excess 4.9 H (-2.0-2.0) mmol/ L Froylan Test Pos Hematocrit 41.2 (37-47) % O2 Delivery Device Nc O2 Liters/Min 3.0 % FiO2 32.0 % Sql Data Analyst ID Cak Sodium (136-145) mmol/L Potassium (3.5-5.1) mmol/L Chloride (98-107) mmol/L Carbon Dioxide (22-29) mmol/L Anion Gap (5-19) BUN (8-23) mg/dL Creatinine (0.5-0.9) mg/dL GFR Calculation Glucose (65-115) mg/dL Calculated Osmolal ity (285-295) mOsm/k g Lactic Acid (0.5-2.2) mmol/L Calcium (8.5-10.5) mg/dL Magnesium (1.7-2.3) mg/dL Total Bilirubin (0.15-1.2) mg/dL AST (0-32) U/L ALT (0-33) U/L Alkaline Phosphata se (35-105) IU/L Troponin T Baselin e (0-10) ng/L Troponin T 120 Min ambler (0-10) ng/L Delta Troponin T (0-10) ABS# NT-Pro-B Natriuret Pep (0-450) pg/mL Total Protein (6.6-8.7) g/dL Albumin (3.5-5.2) g/dL Globulin (1.3-4.6) g/dL Influenza Type A A g (Negative) Influenza Type B A g (Negative) SARS-CoV-2 Ag (Rap id) (Negative) 11/17/19 11/17/19 11/17/19 Range/Units 11:59 11:59 11:59 WBC (4.0-10.0) 10^3/ uL RBC (4.1-5.3) 10^6/u L Hgb (11.5-15.3) g/dL Hct (37.0-47.0) % MCV (81-99) fL MCH (28.0-34.0) pg MCHC (30.0-36.0) g/dL RDW (12.1-15.1) % Plt Count (130-400) 10^3/c mm MPV (7.4-10.4) fL Neut % (Auto) % Lymph % (Auto) % [place] % (Auto) % Eos % (Auto) % Baso % (Auto) % Neut # (Auto) (1.8-7.7) 10^3/u L Lymph # (Auto) (0.8-4.8) 10^3/u L [place] # (Auto) (0.2-0.9) 10^3/u L Eos # (Auto) (0.0-0.8) 10^3/u L Baso # (Auto) (0.0-0.1) 10^3/u L Nucleated RBC % (a uto) % Nucleated RBCs # /100WBC PT (12.1-14.9) SECO NDS INR (0.8-1.2) Specimen Type Sample Site ABG pH (7.35-7.45) ABG pCO2 (35-45) mmHg ABG pO2 (80.0-100.0) mmH g ABG HCO3 (22-26) mmol/L ABG Base Excess (-2.0-2.0) mmol/ L Froylan Test Hematocrit (37-47) % O2 Delivery Device O2 Liters/Min % FiO2 % Sql Data Analyst ID Sodium 132 L (136-145) mmol/L Potassium 4.9 (3.5-5.1) mmol/L Chloride 98 (98-107) mmol/L Carbon Dioxide 23 (22-29) mmol/L Anion Gap 15.9 (5-19) BUN 19 (8-23) mg/dL Creatinine 0.7 (0.5-0.9) mg/dL GFR Calculation Not Reportable Glucose 133 H (65-115) mg/dL Calculated Osmolal ity 272 L (285-295) mOsm/k g Lactic Acid 0.8 (0.5-2.2) mmol/L Calcium 9.3 (8.5-10.5) mg/dL Magnesium 2.3 (1.7-2.3) mg/dL Total Bilirubin 0.3 (0.15-1.2) mg/dL AST 24 (0-32) U/L ALT 17 (0-33) U/L Alkaline Phosphata se 58 (35-105) IU/L Troponin T Baselin e 63 H (0-10) ng/L Troponin T 120 Min ambler (0-10) ng/L Delta Troponin T (0-10) ABS# NT-Pro-B Natriuret Pep 206 (0-450) pg/mL Total Protein 7.1 (6.6-8.7) g/dL Albumin 4.0 (3.5-5.2) g/dL Globulin 3.1 (1.3-4.6) g/dL Influenza Type A A g (Negative) Influenza Type B A g (Negative) SARS-CoV-2 Ag (Rap id) (Negative) 11/17/19 11/17/19 11/17/19 Range/Units 13:22 13:22 13:58 WBC (4.0-10.0) 10^3/ uL RBC (4.1-5.3) 10^6/u L Hgb (11.5-15.3) g/dL Hct (37.0-47.0) % MCV (81-99) fL MCH (28.0-34.0) pg MCHC (30.0-36.0) g/dL RDW (12.1-15.1) % Plt Count (130-400) 10^3/c mm MPV (7.4-10.4) fL Neut % (Auto) % Lymph % (Auto) % [place] % (Auto) % Eos % (Auto) % Baso % (Auto) % Neut # (Auto) (1.8-7.7) 10^3/u L Lymph # (Auto) (0.8-4.8) 10^3/u L [place] # (Auto) (0.2-0.9) 10^3/u L Eos # (Auto) (0.0-0.8) 10^3/u L Baso # (Auto) (0.0-0.1) 10^3/u L Nucleated RBC % (a uto) % Nucleated RBCs # /100WBC PT (12.1-14.9) SECO NDS INR (0.8-1.2) Specimen Type Sample Site ABG pH (7.35-7.45) ABG pCO2 (35-45) mmHg ABG pO2 (80.0-100.0) mmH g ABG HCO3 (22-26) mmol/L ABG Base Excess (-2.0-2.0) mmol/ L Froylan Test Hematocrit (37-47) % O2 Delivery Device O2 Liters/Min % FiO2 % Sql Data Analyst ID Sodium (136-145) mmol/L Potassium (3.5-5.1) mmol/L Chloride (98-107) mmol/L Carbon Dioxide (22-29) mmol/L Anion Gap (5-19) BUN (8-23) mg/dL Creatinine (0.5-0.9) mg/dL GFR Calculation Glucose (65-115) mg/dL Calculated Osmolal ity (285-295) mOsm/k g Lactic Acid (0.5-2.2) mmol/L Calcium (8.5-10.5) mg/dL Magnesium (1.7-2.3) mg/dL Total Bilirubin (0.15-1.2) mg/dL AST (0-32) U/L ALT (0-33) U/L Alkaline Phosphata se (35-105) IU/L Troponin T Baselin e (0-10) ng/L Troponin T 120 Min ambler 59.51 H (0-10) ng/L Delta Troponin T -3.49 L (0-10) ABS# NT-Pro-B Natriuret Pep (0-450) pg/mL Total Protein (6.6-8.7) g/dL Albumin (3.5-5.2) g/dL Globulin (1.3-4.6) g/dL Influenza Type A A g Negative (Negative) Influenza Type B A g Negative (Negative) SARS-CoV-2 Ag (Rap id) Negative (Negative) Imaging Data^: CXR: Attestation: I personally reviewed and interpreted this imaging study as follows: My impression: Possible left basilar infiltrate. EKG Data^: EKG 1: Attestation: I personally reviewed and interpreted this EKG as follows: EKG Interpretation Date: 11/17/19 EKG interpretation time: 12:15 Interpretation: Normal sinus rhythm at 72 beats a minute, LVH, nonspecific ST and T wave changes. EKG 2: Attestation: I personally reviewed and interpreted this EKG as follows: EKG Interpretation Date: 11/17/19 EKG interpretation time: 13:49 Interpretation: Normal sinus rhythm 81 beats a minute, right axis deviation, likely arm lead reversal. No blocks, normal intervals, no acute ST-T wave changes. Discharge Plan Discharge Patient Disposition: Placed in Observation Clinical Impression: Acute exacerbation of chronic obstructive airways disease Condition: Stable Referrals: Zhanna Crawford MD [Primary Care Provider] - Coding Level of Care Code ED Sales Forecast Analyst for Chg Fwd Exam Comprehensive
[2019-11-17 12:08] LABS: ABG PCO2 47.8 mmHg (35-45); ABG PH Result 7.41 (7.35-7.45); Arterial Blood Gas Hematocrit 41.2 % (37-47); Base Excess ABG 4.9 mmol/L (-2.0-2.0); Blood Gas Allen Test Pos; Blood Gas Operator Identificat CAK; Blood Gas Sample Site Radial, left; Blood Gas Sample Type Arterial; HCO3 ABG 30.5 mmol/L (22-26); Oxygen Device NC; PO2 ABG 82.2 mmHg (80.0-100.0)
[2019-11-17 12:11] LABS: Basophils # 0.1 10^3/uL (0.0-0.1); Basophils % 0.6 %; Eosinophils # 0.2 10^3/uL (0.0-0.8); Eosinophils % 1.7 %; Hematocrit 41.7 % (37.0-47.0); Hemoglobin 13.3 g/dL (11.5-15.3); Lymphocytes % 16.7 %; Mean Corpuscular HGB Conc 31.9 g/dL (30.0-36.0); Mean Corpuscular Hemoglobin 30.9 pg (28.0-34.0); Mean Corpuscular Volume 96.8 fL (81-99); Mean Platelet Volume 9.9 fL (7.4-10.4); Monocytes # 0.9 10^3/uL (0.2-0.9); Monocytes % 7.3 %; Neutrophils # 8.82 10^3/uL (1.8-7.7); Neutrophils % 73.4 %; Nucleated Red Blood Cells % 0 %; Platelet Count 389 10^3/cmm (130-400); Red Blood Count 4.31 10^6/uL (4.1-5.3); Red Cell Distribution Width 13.2 % (12.1-15.1)
[2019-11-17 12:22] LABS: INR 0.89 (0.8-1.2)
[2019-11-17 12:27] LABS: Lactic Sepsis W/Reflex 0.8 mmol/L (0.5-2.2)
[2019-11-17 12:29] LABS: Troponin(5th) Baseline 63 ng/L (0-10)
[2019-11-17 12:38] LABS: Alanine Aminotransferase 17 U/L (0-33); Alkaline Phosphatase 58 IU/L (35-105); Aspartate Amino Transferase 24 U/L (0-32); Blood Urea Nitrogen 19 mg/dL (8-23); Calcium 9.3 mg/dL (8.5-10.5); Carbon Dioxide 23 mmol/L (22-29); Chloride 98 mmol/L (98-107); Globulin 3.1 g/dL (1.3-4.6); NT Pro B Type Natriuretic Pept 206 pg/mL (0-450); Total Bilirubin 0.3 mg/dL (0.15-1.2); Total Protein 7.1 g/dL (6.6-8.7)
[2019-11-17 12:45] LABS: Magnesium 2.3 mg/dL (1.7-2.3)
[2019-11-17 12:48] LABS: Anion Gap 15.9 (5-19); Glucose 133 mg/dL (65-115); Osmolality Calculated 272 mOsm/kg (285-295); Potassium 4.9 mmol/L (3.5-5.1); Sodium 132 mmol/L (136-145)
[2019-11-17] MEDS: cefTRIAXone 1,000 MG in sodium chloride 0.9% (plus) 50 ML 100 MG IV (13:10)
[2019-11-17] MEDS: ondansetron 2 mg/ML SDV 2 mL 4 MG IVP (13:10)
[2019-11-17] MEDS: doxycycline 100 mg Tablet 200 MG PO (13:13)
--- NOTE | 2019-11-17 13:44 | ECG_ITS ---
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 Measurements Intervals [place] Rate: 81 P: 101 FL: 125 QRS: 117 QRSD: 89 T: 119 QT: 336 QTc: 392 Interpretive Statements SINUS RHYTHM ARM LEADS REVERSED [INVERTED P AND QRS IN I] Compared to ECG 11/17/2019 12:15:59 Short FL interval no longer present Myocardial infarct finding no longer present Electronically Signed On 11-17-2019 20:07:19 CDT by Lavonne Bucio M.D. [id number]
[2019-11-17 13:45] LABS: SARS Covid-2 Antigen Negative (Negative)
[2019-11-17] MEDS: diphenhydrAMINE 50 mg/mL SDV 1mL 12.5 MG IVP ×2 (13:55→16:31)
[2019-11-17 14:01] LABS: Influenza A by IFA Negative (Negative); Influenza B by IFA Negative (Negative)
[2019-11-17] MEDS: ipratropium-albuterol 3 mL Neb 9 ML INHALATION (14:14)
[2019-11-17 14:21] LABS: Troponin 5 2HR 59.51 ng/L (0-10)
[2019-11-17 14:25] LABS: Troponin 5 2HR Delta -3.49 ABS# (0-10)
--- NOTE | 2019-11-17 16:42 | PM.HP ---
Providers/Chief Complaint Admitting Physician: Harrison Rivera Primary Care Provider: Zhanna Crawford, Chief Complaint: sob History of Present Illness Catrina BARAJAS is a 79 year old pleasant lady, very hard of hearing, but able to communicate respond control loudly, accompanied in ER by her came in due to progressive shortness of breath for the last 1-2 weeks, especially with exertion, and recently particularly today with cough. She feels like there is sputum/congestion in her chest, but has not been able to spit it up. Small piece that she did spit up was white. She denies any chest pain, does feel like her chest is tight when she tries to take a deep breath. Denies lower extremity swelling, does get somewhat more short of breath lying down on her back, and so sleeps on her side, but does not need to sleep sitting up. Denies any history of coronary disease. Says that she no longer smokes. Denies any fever, but has had some subjective chills. In ER chest x-ray with minimal pleural effusion, no pneumonia, rapid flu and rapid COVID testing negative. Mild leukocytosis of 12. She is afebrile, without tachycardia. On 3 L of oxygen, previously 2 L was her baseline. Troponin level moderately elevated, 63-59.51. EKG without suggestion of acute ischemia. Theophylline level is not elevated. She says that she has a nebulizer at home and has been using it. In ER she says she got itching of her skin after taking oral medication, but was not sure what it was. Appears she received oral doxycycline, also treated with Rocephin, breathing treatment, Solu-Medrol IV. She is feeling better after the treatments. Review of Systems Const: Denies: fever(s), chills, body aches or malaise Eyes: Denies: change in vision or eye redness ENMT: Denies: throat pain, oral sores or ear or mastoid pain Card: Reports: dyspnea on exertion; Denies: chest pain, edema or pre-syncope Resp: Reports: dyspnea and productive cough; Denies: change in phlegm color or hemoptysis GI: Denies: abdominal pain, nausea, vomiting, diarrhea, constipation, hematochezia or melena : Denies: flank pain, urinary frequency or hematuria Musc: Denies: back pain, joint swelling or joint redness Skin/Breast: Denies: rash, sores or new lesions Neuro: Denies: headache(s), numbness in extremities, weakness in extremities, dizziness, confusion or seizure-like activity Endo: Denies: polyuria or polydipsia Tyson/Lymph: Denies: easy bleeding or purpura All/Imm: Denies: urticaria, throat swelling or tongue swelling Medications/Allergies Home Medications Medication Instructions Recorded Confirmed Last Taken Type Dulera 2 puff INHALATION Q12H PRN 04/13/19 11/17/19 11/17/19 History albuterol sulfate [Ventolin HFA] 2 puff INHALATION Q4H PRN 04/13/19 11/17/19 11/17/19 History alprazolam [Xanax] 0.25 mg PO Q6H PRN 04/13/19 11/17/19 Unknown History gabapentin 100 mg PO TID PRN 04/13/19 11/17/19 Unknown History guaifenesin [Mucinex] 600 mg PO Q12H PRN 04/13/19 11/17/19 Unknown History ipratropium-albuterol 3 ml INHALATION QID PRN 04/13/19 11/17/19 11/17/19 History lisinopril 10 mg PO DAILY 04/13/19 11/17/19 11/17/19 History potassium gluconate 99 mg PO DAILY 04/13/19 11/17/19 Unknown History sertraline [Zoloft] 50 mg PO DAILY 04/13/19 11/17/19 Unknown History theophylline 300 mg PO BEDTIME 04/13/19 11/17/19 11/17/19 History budesonide 2 ml INHALATION Q12H #60 ml 04/18/19 11/17/19 11/17/19 Rx ipratropium bromide 2.5 ml INHALATION Q8H #62.5 ml 04/18/19 11/17/19 11/17/19 Rx buspirone 5 mg PO TID 11/17/19 11/17/19 Unknown History fluticasone propionate See Rx Instructions .ROUTE .COMPLEX 11/17/19 11/17/19 11/17/19 History levothyroxine 75 mcg PO DAILY 11/17/19 11/17/19 11/17/19 History meloxicam 15 mg PO DAILY PRN 11/17/19 11/17/19 Unknown History Allergies Allergy/AdvReac Type Severity Reaction Status Date / Time Sulfa (Sulfonamide Allergy ALGY-Rash Verified 11/17/19 15:33 Antibiotics) PFSH Acute PFSH: Medical History COPD (chronic obstructive pulmonary disease) Depression DJD (degenerative joint disease) Hyperlipidemia Hypertension Hypothyroidism Surgical History History of appendectomy History of hemorrhoidectomy History of total abdominal hysterectomy Family History Father Emphysema of lung Social History Smoking and tobacco status: current some day smoker Alcohol intake: never Substance/Drug Use: never Lives independently: Yes Household members: spouse Marital status: Vitals/I&O/Wt Last Vital Signs Temp 97.6 F 11/17/19 11:40 Pulse 78 11/17/19 16:22 Resp 20 H 11/17/19 16:22 BP 149/96 11/17/19 16:22 Pulse Ox 96 11/17/19 16:22 Weight last 48 hrs Weight 49.895 kg Physical Exam Const: COMMON NORMALS: no acute distress and patient oriented x3 GENERAL APPEARANCE: frail appearing HENMT: COMMON NORMALS: oropharynx normal Neck/C-Spine: COMMON NORMALS: no JVD Resp: COMMON NORMALS: normal respiratory effort EFFORT & INSPECTION: Yes audible wheezes Cardio: COMMON NORMALS: no JVD, regular rhythm, S1 normal heart sound present, S2 normal heart sound present and No murmurs present (Cardio) RHYTHM: regular rhythm HEART SOUNDS: S1 normal heart sound present and S2 normal heart sound present GI: COMMON NORMALS: Normal to inspection, nondistended, normoactive bowel sounds present, Soft to palpation and non-tender PALPATION: Yes Soft to palpation Extremity: COMMON NORMALS: no joint enlargement and no pedal edema Neuro: COMMON NORMALS: patient oriented x3 and moves all extremities Skin: COMMON NORMALS: no rashes or lesions noted GENERAL SKIN EXAM: no rashes or lesions noted Data : 11/17/19 11:59 11/17/19 11:59 Micro: Microbiology 11/17/19 13:58 Blood Culture - Preliminary Blood SPECIMEN COLLECTED 11/17/19 11:59 Blood Culture - Preliminary Blood SPECIMEN COLLECTED A&P Assessment and plan (1) Acute exacerbation of chronic obstructive airways disease: Dyspnea, especially on exertion, today is also having worsened cough. Some congestion, wheezing on exam. Chest tightness on deep inspiration. No chest pain. No hemoptysis. No peripheral edema. COPD exacerbation with higher oxygen requirement compared to usual, currently needing 3 L, previously baseline 2 L. Did show some improvement in symptoms with breathing treatments, dose of Solu-Medrol, Rocephin, doxycycline. Continue IV steroids at this time, continue breathing treatments. We will try to collect sputum cultures if possible. Discussed with her and her , for now we have agreed we will hold off on antibiotic until if we see there is sputum color change, or if we are growing a particular organism on culture. Rapid flu negative. Rapid COVID19 antigen negative. As she is also been admitted in April of this year, may benefit from follow-up with pulmonology to which she would be agreeable. She states that she no longer smokes. Status: Acute (2) Elevated troponin: Troponin level elevated at 63-59.1. Follow-up series. EKG not suggestive of acute AK. Troponin level appears to be similar to level back in April. Discussed with patient and . Will assess by TTE. She does have risk factors for coronary disease, and so after recovers from COPD exacerbation discussed that may benefit from additional assessment by stress testing for possible underlying coronary to disease. At this time this appears to be related to mismatch and demand supply. Status: Acute Additional A&P Information She had itching after an oral medication today, although is not sure which 1. Did receive doxycycline, perhaps this was the cause. Itching improved with Benadryl. No mouth or throat swelling. Anxiety/depression Hypothyroidism HLD HTN Attestations Medical Necessity Statement*: Place in observation. Coding Level of Care Code Acute Correctional Maintenance Technician for [facility] Fwd Exam Comprehensive Diagnoses Acute exacerbation of chronic obstructive airways disease J44.1 Elevated troponin R79.89
--- NOTE | 2019-11-17 17:44 | ECG_ITS ---
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 Measurements Intervals [place] Rate: 77 P: 75 [place]: 131 QRS: 32 QRSD: 90 T: 50 QT: 363 QTc: 413 Interpretive Statements SINUS RHYTHM MODERATE VOLTAGE CRITERIA FOR LVH, CONSIDER NORMAL VARIANT [MEETS CRITERIA IN ONE OF: R(aVL), S(V1), R(V5), R(V5/V6)+S(V1)] POSSIBLE ANTEROSEPTAL MYOCARDIAL INFARCTION [30 ms Q WAVE IN V1-V4], OF INDETERMINATE AGE Compared to ECG 11/17/2019 13:49:25 Myocardial infarct finding now present Electronically Signed On 11-17-2019 20:10:44 CDT by Lavonne Bucio M.D. [id number]
[2019-11-17 18:24] LABS: Troponin 5 6HR 44.81 ng/L (0-10)
[2019-11-17] MEDS: dextrose 5%-sod chloride 0.45% 1,000 ML 75 ML IV (18:29)
--- NOTE | 2019-11-17 18:57 | PC.NURSE ---
End of shift summary Report received from Delia in the ER. Patient arrived to the floor at 1700. Patient came to the emergency room today because she said she has not been able to catch her breath for 2 weeks. Patient uses 2 liters of oxygen at home all the time. Patient is A&Ox3. Respirations even and non-labored on 3 liters of oxygen. Patient has a skin tear to here left lower leg that this auto service writer covered with a band-aid.
[2019-11-17] MEDS: ipratropium-albuterol 3 mL Neb INHALATION ×2 (19:44→23:30)
[2019-11-17] MEDS: BuSPIRONE 5 mg Tablet PO (23:25)
[2019-11-18] VITALS (13 sets, daily range): BP systolic 132–191; BP diastolic 56–75; PULSE 68–97; RESP 18–24; TEMP 36.6–36.8; O2SAT 92–99
[2019-11-18] MEDS: ipratropium-albuterol 3 mL Neb INHALATION ×5 (04:14→19:50)
[2019-11-18 05:57] LABS: Basophils % 0.1 %; Hematocrit 39.3 % (37.0-47.0); Hemoglobin 12.5 g/dL (11.5-15.3); Lymphocytes # 0.9 10^3/uL (0.8-4.8); Lymphocytes % 8.9 %; Mean Corpuscular HGB Conc 31.8 g/dL (30.0-36.0); Mean Corpuscular Hemoglobin 30.6 pg (28.0-34.0); Mean Corpuscular Volume 96.3 fL (81-99); Mean Platelet Volume 10.3 fL (7.4-10.4); Monocytes # 0.4 10^3/uL (0.2-0.9); Monocytes % 4.2 %; Neutrophils # 8.95 10^3/uL (1.8-7.7); Neutrophils % 86.4 %; Nucleated Red Blood Cells % 0 %; Platelet Count 353 10^3/cmm (130-400); Red Blood Count 4.08 10^6/uL (4.1-5.3); White Blood Count 10.4 10^3/uL (4.0-10.0)
[2019-11-18 06:43] LABS: Anion Gap 13.9 (5-19); Blood Urea Nitrogen 20 mg/dL (8-23); Calcium 9.3 mg/dL (8.5-10.5); Carbon Dioxide 29 mmol/L (22-29); Chloride 96 mmol/L (98-107); Glucose 175 mg/dL (65-115); Osmolality Calculated 279 mOsm/kg (285-295); Potassium 4.9 mmol/L (3.5-5.1); Sodium 134 mmol/L (136-145)
[2019-11-18] MEDS: ALPRAZolam 0.25 mg Tablet PO ×2 (07:38→15:41)
[2019-11-18] MEDS: sertraline 50 mg Tablet PO (08:18)
[2019-11-18] MEDS: levothyroxine 150 mcg Tablet 75 MCG PO (08:18)
[2019-11-18] MEDS: dextrose 5%-sod chloride 0.45% 1,000 ML 75 ML IV (08:18)
[2019-11-18] MEDS: BuSPIRONE 5 mg Tablet PO ×3 (08:18→21:05)
[2019-11-18] MEDS: lisinopril 10 mg Tablet PO (08:18)
--- NOTE | 2019-11-18 09:29 | USCV_ITS ---
Catrina BARAJAS Age: 79 Gender: F : 1940 Exam Date: 11/18/2019 09:55 Ordering Phys: Harrison Rivera MD Technologist: [place] [facility] [place]B BP: 126 / 72 HR: 90 Rhythm: Sinus Technical Quality: MEASUREMENTS (Male / Female) Normal Values 2D ECHO LV Diastolic Diameter PLAX 3.5 cm 4.2 - 5.9 / 3.9 - 5.3 cm LV Systolic Diameter PLAX 2.3 cm IVS Diastolic Thickness 0.8 cm 0.6 - 1.0 / 0.6 - 0.9 cm IVS Systolic Thickness 1.3 cm LVPW Diastolic Thickness 1.3 cm 0.6 - 1.0 / 0.6 - 0.9 cm LVPW Systolic Thickness 1.4 cm LVOT Diameter 2.0 cm LV Ejection Fraction 2D Teich 66.7 % LV Ejection Fraction MOD 2C 72.6 % LV Ejection Fraction 2C AL 73.8 % LA Diameter 3.5 cm LA Width 3.4 cm LA Height 3.9 cm RA Width 2.1 cm RA Height 4.2 cm M-MODE LV Diastolic Diameter MM 4.4 cm 4.2 - 5.9 / 3.9 - 5.3 cm LV Systolic Diameter MM 2.2 cm LV Ejection Fraction MM Teich 82.3 % IVS Diastolic Thickness MM 0.9 cm 0.6 - 1.0 / 0.6 - 0.9 cm IVS Systolic Thickness MM 1.5 cm LVPW Diastolic Thickness MM 1.2 cm 0.6 - 1.0 / 0.6 - 0.9 cm LVPW Systolic Thickness MM 1.7 cm RV Diastolic Diameter MM 1.6 cm Aortic Annulus Diameter 3.2 cm LA Ao Ratio MM 1.1 MV E Point Septal Separation 0.2 cm DOPPLER AV Peak Velocity 182.0 cm/s LVOT Peak Velocity 142.0 cm/s AV Area Cont Eq vti 2.9 cm squared AV Area Cont Eq pk 2.5 cm squared MV Area PHT 5.0 cm squared Mitral E to A Ratio 0.7 MV E' Velocity 8.0 cm/s Mitral E to MV E' Ratio 11.6 Mitral E to LV E' Lateral Ratio 10.5 Mitral E to LV E' Septal Ratio 13.0 TR Peak Velocity 284.0 cm/s TR Peak Gradient 32.3 mmHg TV Peak E Velocity 94.0 cm/s Right Atrial Pressure 3.0 mmHg Pulmonary Artery Systolic Pressu 35.3 mmHg PV Peak Velocity 98.0 cm/s FINDINGS Left Ventricle Normal left ventricular size.LV is hyperdynamic with no regional wall motion abnormalities. Mild LVH is noted. Diastolic function is consistent with grade 1 dysfunction. Right Ventricle The right ventricle is normal in size and function. Right Atrium The right atrium is normal in size. Left Atrium The left atrium is normal in size. Mitral Valve Structurally normal mitral valve without significant stenosis or prolapse. There is no mitral regurgitation. Aortic Valve Aortic valve is thickened. No significant stenosis noted. Mild aortic insufficiency is present. Tricuspid Valve Structurally normal tricuspid valve without significant stenosis or regurgitation. Insufficient TR jet to measure RVSP. Pulmonic Valve Structurally normal pulmonic valve without significant stenosis. There is no pulmonic regurgitation. Pericardium Normal pericardium without effusion. Aorta Normal ascending aorta dimension. CONCLUSIONS LV systolic function is hyperdynamic with EF of >65%. Grade 1 diastolic dysfunction Mild aortic insufficiency is noted. Demario Bajwa MD (Electronically Signed) Final Date: 18 November 2019 12:01 S
--- NOTE | 2019-11-18 11:01 | PC.CHAP ---
Pastoral Care Encounter/Spiritual Assessment Type of Contact [] Declined tuck pointer visit [] Patient/Family/Request visit [] Outpatient visit [x] Follow-up visit [] Physician referral [] Code/Alert [x] Routine visit [] Staff referral [] Actively dying [] Patient sleeping [] Family support [] [] Out of room [] Palliative care [] [x] Receiving care in room [] Pre-surgical visit [] Trauma [] Long length of stay [] ICU visit [] Other: Relational/Emotional Strength [] Patient feels connected with others/family/visitors/staff [] Distress [] Loneliness/isolation [] Abandonment Spirituality of Patient [] Person of Nadira [] Attends Mu-Ism of their Nadira [] Believes in Prayer [] Reads Bible or Temple materials [] There are Spiritual issues to be addressed [place] Attendant Interventions [] Prayer [] Active listening [] Non-anxious presence [] Spiritual/emotional support [] Crisis/trauma care [] Spiritual counseling [] Bereavement support [] Provided bereavement packet [] Provided Bible/devotional materials [] Provided toy/stuffed animal, coloring book to patient or family member [] Provided Communion [] Anointing/Flushing [] Salvation [] Completed spiritual assessment [] Other: Impact on Illness or Injury [] Angry [] Fearful [] Anxious [] Often cries [] Exhaustion [] Unable to work [] Unable to attend gnosticist [] Unable to walk/stand [] Unable to read [] Unable to drive [] Unable to eat/drink [] Unable to sleep [] Unable to be with family [] Patient intubated [] Other: Summary with staff doctor doing testing Time spent with patient 5 mins
--- NOTE | 2019-11-18 11:51 | P.PN_ITS ---
Subjective Subjective: Interval history: She is not feeling any better today, other than maybe a hair . Gets very dyspneic with exertion. Denies chest pain. Having some chest tightness with deep breaths. Says that he has not been coughing up much, although does feel that phlegm is building up in her chest, but has not been able to expectorate. Vitals/I&O/Wt Last Vital Signs Temp 98.2 F 11/18/19 08:00 Pulse 88 11/18/19 08:00 Resp 24 H 11/18/19 08:00 BP 166/74 11/18/19 08:00 Pulse Ox 93 11/18/19 08:00 11/17/19 11/18/19 11/18/19 22:59 06:59 14:59 Intake Total 1360 / 1360 Output Total 700 / 700 Balance -700 / -700 1360 / 1360 Weight last 48 hrs Weight 49.895 kg Physical Exam Const: COMMON NORMALS: no acute distress and patient oriented x3 GENERAL APPEARANCE: frail appearing HENMT: COMMON NORMALS: oropharynx normal Neck/C-Spine: COMMON NORMALS: no JVD Resp: COMMON NORMALS: normal respiratory effort EFFORT & INSPECTION: Yes audible wheezes (Worse than yesterday.) Cardio: COMMON NORMALS: no JVD, regular rhythm, S1 normal heart sound present, S2 normal heart sound present and No murmurs present (Cardio) RHYTHM: regular rhythm HEART SOUNDS: S1 normal heart sound present and S2 normal heart sound present GI: COMMON NORMALS: Normal to inspection, nondistended, normoactive bowel sounds present, Soft to palpation and non-tender PALPATION: Yes Soft to palpation Extremity: COMMON NORMALS: no joint enlargement and no pedal edema Neuro: COMMON NORMALS: patient oriented x3 and moves all extremities Skin: COMMON NORMALS: no rashes or lesions noted GENERAL SKIN EXAM: no rashes or lesions noted Data : 11/18/19 05:28 11/18/19 05:28 Micro: Microbiology 11/17/19 13:58 Blood Culture - Preliminary Blood SPECIMEN COLLECTED 11/17/19 11:59 Blood Culture - Preliminary Blood SPECIMEN COLLECTED A&P Assessment and plan (1) Acute exacerbation of chronic obstructive airways disease: She does not feel significant improvement. Still has significant wheezing. Gets easily dyspneic on exertion. Feels phlegm buildup but has not been able to cough it up. Appears generally weak. Will need to continue IV steroids at this time. Increase elemental dose to 60 mg every 6. Unable to discharge home due to how dyspneic she gets with exertion. For now holding off on antibiotic until can get more information whether she has purulent sputum. She is otherwise afebrile. Today white blood cell count is normal. We will make guaifenesin scheduled. Prescription with pharmacy would only have a long-acting beta agonist here that we can give her, so we will give her nonformulary Dulera as she takes at home. Has her inhaler with her. Add budesonide breathing treatments. Flutter valve. Appears to be severe exacerbation of COPD with dyspnea, worse hypoxia, more sputum production (a little is having difficulty expectorating it). COPD exacerbation with higher oxygen requirement compared to usual, currently needing 3 L, previously baseline 2 L. Continue IV steroids at this time, continue breathing treatments. We will try to collect sputum cultures if possible. As discussed with her and her , for now we have agreed we will hold off on antibiotic until if we see there is sputum color change, or if we are growing a particular organism on culture. Rapid flu negative. Rapid COVID19 antigen negative. As she is also been admitted in April of this year, may benefit from follow- up with pulmonology to which she would be agreeable. She states that she no longer smokes. Status: Acute (2) Elevated troponin: Troponin level elevated at 63-59.1. TTE ordered. No rise in troponin. EKG not suggestive of acute VT. No chest pain. Troponin level appears to be similar to level back in April. She does have risk factors for coronary disease, and so after recovers from COPD exacerbation discussed that may benefit from additional assessment by stress testing for possible underlying coronary to disease. At this time this appears to be related to mismatch and demand supply. Status: Acute Additional A&P Information She had itching after an oral medication in ER, although is not sure which one. Did receive doxycycline, perhaps this was the cause. Itching improved with Benadryl. No mouth or throat swelling. Anxiety/depression Hypothyroidism HLD HTN Attestations Medical Necessity Statement*: Requires admission of over 2 midnights for assessment and management of persistent exacerbation of COPD which is severe despite IV steroids, worse hypoxia than usual, elevated troponin. Coding Level of Care Code Acute Asbestos Wire Finisher for Chg Fwd Diagnoses Acute exacerbation of chronic obstructive airways disease J44.1 Elevated troponin R79.89
[2019-11-18] MEDS: guaiFENesin 600 mg Tablet PO (12:17)
--- NOTE | 2019-11-18 13:27 | PC.RESP ---
Smoking Cessation and Pulmonary Rehab information to patient.
[2019-11-18] MEDS: enoxaparin 40 mg/0.4 mL Syringe SUBCUT (17:17)
[2019-11-18] MEDS: budesonide 0.5 mg/2 mL Neb INHALATION (19:50)
--- NOTE | 2019-11-18 20:45 | PC.NURSE ---
Patient's blood pressure is elevated 182/62. Patient stated abdomen discomfort and pain. Patient's nurse been notified
[2019-11-19] VITALS (17 sets, daily range): BP systolic 145–200; BP diastolic 66–88; PULSE 79–102; RESP 18–22; TEMP 36.4–37.2; O2SAT 80–94
--- NOTE | 2019-11-19 00:19 | PC.NURSE ---
Patient's blood pressure is elevated 184/70 rechecked with manual cuff. Patient stated having trouble sleeping, want something even over the counter to help me sleep. Patient's nurse been notified.
[2019-11-19] MEDS: ALPRAZolam 0.25 mg Tablet PO (00:25)
[2019-11-19] MEDS: guaiFENesin 600 mg Tablet PO (00:25)
[2019-11-19] MEDS: ipratropium-albuterol 3 mL Neb INHALATION ×5 (00:40→12:40)
[2019-11-19] MEDS: hyDRALAzine 20 mg/mL INJ 1 mL 10 MG IVP (03:00)
[2019-11-19 06:04] LABS: Basophils % 0.1 %; Hematocrit 40.7 % (37.0-47.0); Hemoglobin 13.1 g/dL (11.5-15.3); Lymphocytes # 1.2 10^3/uL (0.8-4.8); Lymphocytes % 5.7 %; Mean Corpuscular HGB Conc 32.2 g/dL (30.0-36.0); Mean Corpuscular Hemoglobin 30.7 pg (28.0-34.0); Mean Corpuscular Volume 95.3 fL (81-99); Mean Platelet Volume 10.6 fL (7.4-10.4); Monocytes # 0.7 10^3/uL (0.2-0.9); Monocytes % 3.1 %; Neutrophils # 19.68 10^3/uL (1.8-7.7); Neutrophils % 90.6 %; Nucleated Red Blood Cells % 0 %; Platelet Count 397 10^3/cmm (130-400); Red Blood Count 4.27 10^6/uL (4.1-5.3); Red Cell Distribution Width 13.1 % (12.1-15.1); White Blood Count 21.7 10^3/uL (4.0-10.0)
[2019-11-19 06:26] LABS: Anion Gap 13.1 (5-19); Blood Urea Nitrogen 16 mg/dL (8-23); Calcium 9.4 mg/dL (8.5-10.5); Carbon Dioxide 29 mmol/L (22-29); Chloride 102 mmol/L (98-107); Glucose 166 mg/dL (65-115); Osmolality Calculated 290 mOsm/kg (285-295); Potassium 4.1 mmol/L (3.5-5.1); Sodium 140 mmol/L (136-145)
[2019-11-19] MEDS: BuSPIRONE 5 mg Tablet PO (09:32)
[2019-11-19] MEDS: levothyroxine 150 mcg Tablet 75 MCG PO (09:34)
[2019-11-19] MEDS: sertraline 50 mg Tablet PO (09:36)
[2019-11-19] MEDS: lisinopril 10 mg Tablet 20 MG PO (09:37)
--- NOTE | 2019-11-19 12:45 | PM.DCS ---
Discharge Providers Date of Admission: 11/18/19 12:10 Date of Discharge: November 19, 2019 Attending Provider at Admission: Harrison Rivera Attending Provider at Discharge: Harrison Rivera Primary Care Provider: Zhanna Crawford, Diagnoses at Discharge Discharge Diagnosis (1) Acute exacerbation of chronic obstructive airways disease: Status: Acute (2) Elevated troponin: Status: Acute Reason for Visit Reason for Visit: sob Hospital Course Hospital Course: Pleasant 79 year old lady with COPD on chronic oxygen 2 L, with HTN, HLD, former smoker, although says currently that she has quit smoking was admitted due to worsening dyspnea over several weeks, with cough, difficulty producing sputum, found to have significant wheezing on exam, and treated for COPD dissipation with IV steroids, breathing treatments. She reports that what little sputum she was coughing up was not discolored, and so antibiotics for now were held. She has remained stable on 3 L nasal cannula. It does appear that her problems with dyspnea are mostly on exertion. Her wheezing today is much better. She is feeling better. We did check echocardiogram as her troponin was moderately elevated on presentation as discussed with her and her , without peaking to suggest acute MS. She has been chest pain-free. She is at risk of coronary artery disease. Echocardiogram showed normal ejection fraction, grade 1 diastolic dysfunction. No regional wall motion abnormality. Mild aortic insufficiency was noted. Results were discussed with her. As discussed also due to concern for possible underlying coronary disease given risk factors she is referred for stress testing once she recovers somewhat from her COPD exacerbation. We discussed with her also strategies of maintaining her oxygen saturation between 88-92%. We are requesting for home oxygen evaluation, and she will return home with a prednisone taper. We discussed risks and benefits of prednisone therapy and she verbalized understanding and is agreeable to complete the course at this time. As she was also admitted here back in April with respiratory complaints, she is referred for follow-up with pulmonology in office as well to which she is agreeable. Please follow-up stress test results, and referred to cardiology if appropriate. Physical Exam Const: COMMON NORMALS: no acute distress and patient oriented x3 GENERAL APPEARANCE: frail appearing HENMT: COMMON NORMALS: oropharynx normal Neck/C-Spine: COMMON NORMALS: no JVD Resp: COMMON NORMALS: normal respiratory effort EFFORT & INSPECTION: Yes audible wheezes (Much better air entry. Wheezing resolved except for minimal wheeze localized on the left.) Cardio: COMMON NORMALS: no JVD, regular rhythm, S1 normal heart sound present, S2 normal heart sound present and No murmurs present (Cardio) RHYTHM: regular rhythm HEART SOUNDS: S1 normal heart sound present and S2 normal heart sound present GI: COMMON NORMALS: Normal to inspection, nondistended, normoactive bowel sounds present, Soft to palpation and non-tender PALPATION: Yes Soft to palpation Extremity: COMMON NORMALS: no joint enlargement and no pedal edema Neuro: COMMON NORMALS: patient oriented x3 and moves all extremities Skin: COMMON NORMALS: no rashes or lesions noted GENERAL SKIN EXAM: no rashes or lesions noted Discharge Data Data Completed and Pending: Completed Studies During Hospitalization Category Date Time Status XR chest 1V key ble [id number] Stat Exams 11/17/19 11:43 Completed CV echo complete* [id number] Routine Ultrasound 11/18/19 09:29 Completed Pending at discharge Category Date Time Status Basic Metabolic P jaclyn AM LABS Lab 11/20/19 04:00 Ordered Basic Metabolic P jaclyn AM LABS Lab 11/21/19 04:00 Ordered Blood Culture Sta t Lab 11/17/19 13:58 Results Complete Blood Co unt w/Auto AM LABS Lab 11/20/19 04:00 Ordered Complete Blood Co unt w/Auto AM LABS Lab 11/21/19 04:00 Ordered Sputum Culture an d Gram Stain Erwin ne Lab 11/17/19 17:14 Uncollected Labs from last 24 hours 11/19/19 11/19/19 05:32 05:32 WBC 21.7 H RBC 4.27 Hgb 13.1 Hct 40.7 MCV 95.3 MCH 30.7 MCHC 32.2 RDW 13.1 Plt Count 397 MPV 10.6 H Neut % (Auto) 90.6 Lymph % (Auto) 5.7 Fountain % (Auto) 3.1 Eos % (Auto) 0.0 Baso % (Auto) 0.1 Neut # (Auto) 19.68 H Lymph # (Auto) 1.2 Fountain # (Auto) 0.7 Eos # (Auto) 0.0 Baso # (Auto) 0.0 Nucleated RBC % (a uto) 0 Nucleated RBCs # 0.0 Sodium 140 Potassium 4.1 Chloride 102 Carbon Dioxide 29 Anion Gap 13.1 BUN 16 Creatinine 0.6 GFR Calculation Not Reportable Glucose 166 H Calculated Osmolal ity 290 Calcium 9.4 Vitals: Last Vital Signs Temp 99.0 F 11/19/19 11:24 Pulse 102 H 11/19/19 12:40 Resp 20 H 11/19/19 12:40 BP 179/76 11/19/19 11:24 Pulse Ox 90 11/19/19 12:40 Discharge Plan Discharge Patient Disposition: Home Condition: Stable Prescriptions: New prednisone 20 mg tablet 10 mg PO QID Qty: 13 RF: 0 Continued buspirone 5 mg tablet 5 mg PO TID RF: 0 meloxicam 15 mg tablet 15 mg PO DAILY PRN (Reason: arthritis pain) RF: 0 levothyroxine 75 mcg tablet 75 mcg PO DAILY RF: 0 fluticasone propionate 50 mcg/actuation spray,suspension See Rx Instructions .ROUTE .COMPLEX RF: 0 ipratropium-albuterol 0.5 mg-3 mg(2.5 mg base)/3 mL Solution For Nebulization 3 ml INHALATION QID PRN (Reason: Shortness Of Breath) RF: 0 theophylline 300 mg Tablet Extended Release 12 Hr 300 mg PO BEDTIME RF: 0 alprazolam [Xanax] 0.25 mg Tablet 0.25 mg PO Q6H PRN (Reason: Anxiety) RF: 0 lisinopril 10 mg Tablet 10 mg PO DAILY RF: 0 gabapentin 100 mg Capsule 100 mg PO TID PRN (Reason: Pain) RF: 0 albuterol sulfate [Ventolin HFA] 90 mcg/actuation Hfa Aerosol Inhaler 2 puff INHALATION Q4H PRN (Reason: Shortness Of Breath) RF: 0 sertraline [Zoloft] 50 mg Tablet 50 mg PO DAILY RF: 0 Dulera 100-5 mcg/actuation Hfa Aerosol Inhaler 2 puff INHALATION Q12H PRN (Reason: unknown) RF: 0 guaifenesin [Mucinex] 600 mg Tablet Extended Release 12hr 600 mg PO Q12H PRN (Reason: Congestion) RF: 0 potassium gluconate 99 mg PO DAILY RF: 0 budesonide 0.5 mg/2 mL suspension for nebulization 2 ml INHALATION Q12H Qty: 60 RF: 0 ipratropium bromide 0.02 % solution 2.5 ml INHALATION Q8H Qty: 62.5 RF: 0 Discharge Orders: Discharge Order (Routine); Ordered 11/19/19 Ordered By: Harrison Rivera Other Ambulatory Orders: Sestamibi Stress Test Request (Routine) Timeframe: 2 Weeks Facility: [facility] - Location: Cardiac Diagnostic Laboratory Ordered By: Harrison Rivera Referrals: Pulmonary [Provider Group] - 1 week (COPD) Zhanna Crawford MD [Primary Care Provider] - 4-7 days Discharge Diet: Cardiac Discharge Activity: Increase activity as tolerated and Oxygen as instructed Patient Instructions: Prednisone (By mouth), Chronic Obstructive Pulmonary Disease (DC) Activity Restrictions/Additional Instructions: Please target oxygen saturation 88-92% when at home. He may increase oxygen flow rate temporarily if you are walking or exerting herself, then remember to decrease it again if your saturation at rest. Continue to monitor with your pulse oximeter multiple times a day. Due to risk factors of coronary artery disease, and some chronic abnormality of troponins, you are referred for cardiac stress testing. Please discuss results with your primary care doctor, and discuss whether referral for evaluation by cardiology may be needed. If you experience persistent chest pain, worsening or shortness of breath with or without wheezing, fainting, or other abnormal symptoms, please go to ER to be checked out. Discharge Attestations Time Spent in Discharge Care*: greater than 30 min Quality Metrics Clinical Quality Measures During this hospital stay, did patient experience: None Coding Level of Care Code Acute Vehicle Monitor Technician for Chg Fwd Diagnoses Acute exacerbation of chronic obstructive airways disease J44.1 Elevated troponin R79.89
--- NOTE | 2019-11-19 15:20 | PC.NURSE ---
Patient discharge reviewed with her by Dasha SMALL. Patient is A&Ox3. Respirations even and non-labored on 2 liters of oxygen. Patient personal medications given to her prior to her leaving. Patient's cell phone and purse sent with her as well.
== END 2019-11-19 15:20 | disposition home or self-care (01) | DRG 192 ==
LOC: ER 14:32 → MEDSURG 15:16
PROVIDERS: Emergency Medicine; Admitting Provider Internal Medicine; PCP Family Medicine; Visit Provider Internal Medicine
DX: J44.1 Chronic obstructive pulmonary disease with (acute) exacerbation (principal); I10 Essential (primary) hypertension; E78.5 Hyperlipidemia, unspecified; Z99.81 Dependence on supplemental oxygen; Z20.828 Contact with and (suspected) exposure to other viral communicable diseases; E03.9 Hypothyroidism, unspecified; M19.90 Unspecified osteoarthritis, unspecified site; F41.8 Other specified anxiety disorders; F17.210 Nicotine dependence, cigarettes, uncomplicated
CPT/HCPCS: 12345; 36415; 36600; 71045; 80048; 80053; 80198; 82803; 83605; 83735; 83880; 84484; 85025; 85610; 87040; 87426; 87804; 93005; 93306; 94640; 94664; 96372; 96375; 99282; G0378; J0360; J0696; J1200; J1650; J2405; J2920; J2930; J3535; J7626; J7799

== ENCOUNTER 2020-07-20 09:46 | Emergency (ER) | payer MEDICARE, MEDICAID, SELFPAY ==
--- NOTE | 2020-07-20 10:08 | XR_ITS ---
WS: [id number] PORTABLE CHEST HISTORY: SOB COMPARISON: 11/17/2019 Lungs are hyperexpanded from emphysema. Increased soft tissue at the RIGHT apex is new. RIGHT apical fibrosis or neoplasm not excluded. No pleural effusion or pneumothorax. Cardiac size: Normal. Mediastinum/Aorta: Mild atherosclerosis aorta. Osteopenia. XR/XR chest 1V portable [id number] IMPRESSION: 1. Moderate chronic emphysema with no pneumonia. 2. Increased soft tissue density at the RIGHT apex. May be due to lordotic pos itioning or fibrosis or neoplasm. Recommend follow-up chest CT with IV contrast .
--- NOTE | 2020-07-20 10:08 | ED_ITS ---
HPI - SOB/Dyspnea General: Chief Complaint: Shortness of Breath/Dyspnea Stated Complaint: COPD/Trouble Breathing Time Seen by Provider: 07/20/20 10:01 Source: patient and family (grand-daughter) Mode of arrival: wheelchair Limitations: no limitations History of Present Illness: HPI Narrative: Patient is a nice 80-year-old female with a history of COPD here along with her granddaughter for complaints of worsening shortness of breath. Patient normally wears 2L O2 continuously via NC. She states last night she felt like she could not breathe at all . Shortness of breath does not seem to be worse with position. Despite to worsening shortness of breath she tells me she has not had to increase her oxygen. She has seen Dr. Sainz previously but reportedly was unimpressed with his care. She has also seen her PCP but granddaughter states she did nothing for her . Patient tells me she has been doing albuterol nebulizers as well as her Dulera inhaler. She has not been running fevers. She tells me her normal cough has decreased and she feels like she cannot cough it up . She denies chest pain. MD elicited complaint: shortness of breath Pertinent past history: COPD Onset (ago): hour(s) Timing: constant Severity: moderate Exacerbating factors: nothing Relieving factors: nothing Known history of: COPD Associated symptoms: Reports no associated symptoms and chest congestion; Deny abdominal pain, chest pain, dizziness, fever(s), hemoptysis, lightheadedness, nausea, palpitations, syncope or vomiting Treatment prior to arrival: bronchodilator Related Data: Home oxygen amount: 2 liters Review of Systems Const: Denies: fever(s), chills, body aches, fatigue or malaise Eyes: Denies: change in vision or blurry vision Card: Denies: chest pain, palpitations, irregular heart rhythm, edema, swelling of feet/ankles, lightheadedness, syncope, pre-syncope, dyspnea on exertion or leg pain with exertion Resp: Reports: dyspnea, non-productive cough and chest congestion; Denies: wheezing, stridor, pain on inspiration or hemoptysis GI: Denies: abdominal pain, nausea, vomiting, heartburn or diarrhea : Denies: flank pain or dysuria Musc: Denies: neck pain, back pain or joint pain Skin/Breast: Denies: rash Neuro: Denies: headache(s), numbness in extremities, weakness in extremities, sensory changes, dizziness or confusion PFSH ED PFSH: Medical History (Updated 07/20/20 @ 12:52 by ITA Rosario) COPD (chronic obstructive pulmonary disease) Depression DJD (degenerative joint disease) Hyperlipidemia Hypertension Hypothyroidism Surgical History History of appendectomy History of hemorrhoidectomy History of total abdominal hysterectomy Family History Father Emphysema of lung Social History Smoking and tobacco status: current every day smoker cigarettes Years cig arettes smoked: 60 [ Other cigarette details: Hx of 1PPD x 30+ Years ] Alcohol intake: never Lives independently: Yes Household members: spouse Marital status: Current occupational status: retired History of recent travel: No Current gender identity: Female Physical Exam Const: COMMON NORMALS: no acute distress, patient oriented x3, no limitations and alert GENERAL APPEARANCE: cooperative NUTRITIONAL APPEARANCE: thin ORIENTATION/CONSCIOUSNESS: Yes awake, Yes oriented to person, Yes oriented to place and Yes oriented to time HENMT: COMMON NORMALS: normocephalic and atraumatic HEAD & SCALP: normocephalic and atraumatic Chest: COMMONS NORMALS: normal inspection of the chest and normal palpation of entire chest wall Resp: EFFORT & INSPECTION: Yes abnormal respiratory pattern, Yes labored (mild), No grunting, No stridor, No Actively coughing, No retractions and Yes uses accessory muscles (mild) AUSCULTATION: rales and wheezes (faint YASMEEN) Cardio: COMMON NORMALS: regular rate and regular rhythm RATE: regular rate RHYTHM: regular rhythm Extremity: COMMON NORMALS: capillary refill normal, no clubbing, cyanosis or edema, no calf tenderness and no pedal edema Neuro: ANNABELLE COMA SCALE: document GCS findings [place] coma scale eye opening: Spontaneous [place] coma scale verbal response: Orientated [place] coma scale motor response: Obey commands [place] coma scale total score: 15 COMMON NORMALS: patient oriented x3 SENSORIUM/ORIENTATION: Yes alert, Yes oriented to person, Yes oriented to place and Yes oriented to time Skin: COMMON NORMALS: no rashes or lesions noted GENERAL SKIN EXAM: no rashes or lesions noted Course ED course: Patient's vitals are stable. Labs are looking good-white count 10.8, normal procal, normal BNP; awaiting CMP results; CXR showing possible mass to R apex but otherwise stable with chronic emphysema/no pneumonia; will order CT chest to evaluate further; she complains of itching to arms/hands following the IV solu-medrol so will order IV benadryl and re-evaluate; she is looking like she will most likely be stable for DC with COPD exacerbation treatment Vital Signs: Vital signs: Vital Signs Temperature 98.7 F 07/20/20 10:26 Pulse Rate 78 07/20/20 10:35 Respiratory Rate 20 H 07/20/20 10:35 Blood Pressure 161/50 07/20/20 10:30 Pulse Oximetry 98 07/20/20 10:35 MDM - SOB/Dyspnea MDM Narrative: Medical decision making narrative: Patient's vital signs are stable. She is not requiring additional oxygen. Patient with mild labored breathing upon arrival however this improved with DuoNeb and IV Solu-Medrol. Recommend follow-up with her mobile heavy equipment operator however patient refuses. Will place her on Levaquin and prednisone taper. They were made aware of CT findings. Daughter states they will follow up with primary care (if they can get her to go). Strict return to ED precautions given. Lab Data: Labs: Lab Results 07/20/20 07/20/20 07/20/20 Range/Units 10:25 10:25 10:28 WBC 10.8 H (4.0-10.0) 10^3/ uL RBC 4.08 L (4.1-5.3) 10^6/u L Hgb 12.5 (11.5-15.3) g/dL Hct 39.7 (37.0-47.0) % MCV 97.3 (81-99) fL MCH 30.6 (28.0-34.0) pg MCHC 31.5 (30.0-36.0) g/dL RDW 12.7 (12.1-15.1) % Plt Count 334 (130-400) 10^3/c mm MPV 9.8 (7.4-10.4) fL Neut % (Auto) 76.7 % Lymph % (Auto) 14.6 % [place] % (Auto) 6.2 % Eos % (Auto) 1.6 % Baso % (Auto) 0.6 % Neut # (Auto) 8.27 H (1.8-7.7) 10^3/u L Lymph # (Auto) 1.6 (0.8-4.8) 10^3/u L [place] # (Auto) 0.7 (0.2-0.9) 10^3/u L Eos # (Auto) 0.2 (0.0-0.8) 10^3/u L Baso # (Auto) 0.1 (0.0-0.1) 10^3/u L Nucleated RBC % (a uto) 0 % Nucleated RBCs # 0.0 /100WBC Specimen Type Arterial Sample Site Brachial, left ABG pH 7.40 (7.35-7.45) ABG pCO2 58.6 H (35-45) mmHg ABG pO2 105.0 H (80.0-100.0) mmH g ABG HCO3 35.8 H (22-26) mmol/L ABG O2 Saturation 98.8 ABG Base Excess 8.9 H (-2.0-2.0) mmol/ L Froylan Test N/a A-a O2 Gradient 3.4 L (5-10) mmHg Hematocrit 38.7 (37-47) % Hgb O2 Saturation 96.4 (95-100) % Carboxyhemoglobin 1.7 (0.4-20.1) %THgb Methemoglobin 0.8 (0.4-1.5) % Total Hemoglobin 12.6 (12-16) g/dL Ionized Calcium 1.3 (1.1-1.4) mmol/L O2 Delivery Device Nc O2 Liters/Min 2.0 % FiO2 28.0 % Garment Patternmaker ID Amh Sodium 135 L 138.0 (136-145) mmol/L Potassium 4.7 4.4 (3.5-5.1) mmol/L Chloride 94 L (98-107) mmol/L Carbon Dioxide 36 H (22-29) mmol/L Anion Gap 9.7 (5-19) BUN 13 (8-23) mg/dL Creatinine 0.5 (0.5-0.9) mg/dL GFR Calculation Not Reportable Glucose 121 H 127.0 H (65-115) mg/dL Calculated Osmolal ity 281 L (285-295) mOsm/k g Calcium 9.4 (8.5-10.5) mg/dL Total Bilirubin 0.3 (0.15-1.2) mg/dL AST 18 (0-32) U/L ALT 14 (0-33) U/L Alkaline Phosphata se 57 (35-105) IU/L NT-Pro-B Natriuret Pep 273 (0-450) pg/mL Total Protein 7.3 (6.6-8.7) g/dL Albumin 4.2 (3.5-5.2) g/dL Globulin 3.1 (1.3-4.6) g/dL Procalcitonin 0.05 (0-0.5) ng/mL Imaging Data^: CXR: Radiologist's impression: [employer] [address] [place] [id number] XRay Report Signed Patient: Catrina Rouse Unit #: [id number] : 1940 Age/Sex: 80 / F ADM Date: 07/20/20 Loc: ER Room/Bed: Attending Dr: Ordering Provider/Ordering MD: Myra Small Date of Service: 07/20/20 Procedure(s): XR chest 1V portable [id number] Accession Number(s): [id number] Report Number: [id number] WS: [id number] PORTABLE CHEST HISTORY: SOB COMPARISON: 11/17/2019 Lungs are hyperexpanded from emphysema. Increased soft tissue at the RIGHT apex is new. RIGHT apical fibrosis or neoplasm not excluded. No pleural effusion or pneumothorax. Cardiac size: Normal. Mediastinum/Aorta: Mild atherosclerosis aorta. Osteopenia. XR/XR chest 1V portable [id number] IMPRESSION: 1. Moderate chronic emphysema with no pneumonia. 2. Increased soft tissue density at the RIGHT apex. May be due to lordotic positioning or fibrosis or neoplasm. Recommend follow-up chest CT with IV contrast. Dictated By: Alanna Huston DO Signed By: Alanna Huston DO Signed Date/Time: 07/20/20 1107 DD/ 1106 CT Chest: Radiologist's impression: [employer] [facility] [place] [address] CT Scan Report Signed Patient: Catrina Rouse Unit #: [id number] : 1940 Acct#:O [id number] Age/Sex: 80 / F ADM Date: 07/20/20 Loc: ER Room/Bed: Attending Dr: Ordering Provider/Ordering MD: Myra Small Date of Service: 07/20/20 Procedure(s): CT chest w con* [id number] Accession Number(s): [id number] Report Number: [id number] WS: [id number] CT CHEST WITH INTRAVENOUS CONTRAST HISTORY: Possible RIGHT apical soft tissue. TECHNIQUE: Contiguous 5 mm axial imaging performed on the thorax. Coronal and sagittal reformats are submitted. All CT scans at [facility] use at least one of these dose optimization techniques: automated exposure control; mA and/or kV adjustment per patient size (includes targeted exams where dose is matched to clinical indication); or iterative reconstruction. CONTRAST: Omnipaque 300; 95 mL IV. DLP: 322.62 mGy.cm COMPARISON: 06/10/2014 and chest radiograph 07/20/2020 Lungs and central airway: Marked chronic emphysematous changes. Centrilobular emphysema, no mass at the RIGHT apex. There is bilateral pulmonary apical fibrosis. Linear area of increasing opac ification in the posterior RIGHT upper lobe measures 10 x 21 mm. There is soft tissue stranding which has progressed since 2014 associated with a small cyst and bronchiectasis. Benign granuloma RIGHT lower lobe. Pleura: Normal. No pleural effusion. Heart and pericardium: Mildly enlarged LEFT heart chambers. No pericardial effusion. Mediastinum and anne-marie: No mediastinum or hilar adenopathy. Vessels: Moderate atherosclerosis aorta. No aneurysm. Normal size pulmonary artery. Chest wall and lower neck: No soft tissue masses. Upper abdomen: Suprarenal atherosclerosis aorta. Very mild thickening of the LEFT adrenal limbs similar to the prior study. Moderate size hiatal hernia. Marked constipation at the hepatic flexure. Osseous structures: No osteoblastic or osteolytic bone disease. CT/CT chest w con* [id number] IMPRESSION: 1. No RIGHT apical fibrosis or neoplasm. 2. Moderately severe chronic centrilobular emphysema. 3. Mild increase in irregular opacification in the posterior RIGHT upper lobe since 2015. Slow- growing neoplasm is not excluded. Recommend follow-up chest CT in 3 months with IV contrast. 4. Atherosclerosis aorta. Dictated By: Alanna Huston DO Signed By: Alanna Huston DO Signed Date/Time: 07/20/20 1227 DD/ 1221 Discharge Plan Discharge Patient Disposition: Home Clinical Impression: Acute exacerbation of chronic obstructive airways disease Condition: Stable Prescriptions: New levofloxacin 750 mg tablet 750 mg PO DAILY 5 Days Qty: 5 RF: 0 prednisone 10 mg tablet 10 mg PO DAILY 10 Days Qty: 41 RF: 0 No Action buspirone 5 mg tablet 5 mg PO TID PRN (Reason: Anxiety) RF: 0 meloxicam 15 mg tablet 15 mg PO DAILY PRN (Reason: arthritis pain) RF: 0 fluticasone propionate 50 mcg/actuation spray,suspension See Rx Instructions .ROUTE .COMPLEX RF: 0 levothyroxine 100 mcg tablet 100 mcg PO DAILY RF: 0 ipratropium-albuterol 0.5 mg-3 mg(2.5 mg base)/3 mL Solution For Nebulization 3 ml INHALATION QID PRN (Reason: Shortness Of Breath) RF: 0 theophylline 300 mg Tablet Extended Release 12 Hr 300 mg PO BEDTIME RF: 0 lisinopril 10 mg Tablet 10 mg PO DAILY RF: 0 gabapentin 100 mg Capsule 100 mg PO TID PRN (Reason: Pain) RF: 0 albuterol sulfate [Ventolin HFA] 90 mcg/actuation Hfa Aerosol Inhaler 2 puff INHALATION Q4H PRN (Reason: Shortness Of Breath) RF: 0 sertraline [Zoloft] 50 mg Tablet 50 mg PO DAILY PRN (Reason: Anxiety) RF: 0 Dulera 100-5 mcg/actuation Hfa Aerosol Inhaler 2 puff INHALATION Q12H PRN (Reason: Shortness Of Breath) RF: 0 guaifenesin [Mucinex] 600 mg Tablet Extended Release 12hr 600 mg PO Q12H PRN (Reason: Congestion) RF: 0 Discharge Orders: Discharge ED (Routine); Ordered 07/20/20 Ordered By: Myra Small Referrals: Zhanna Crawford MD [Primary Care Provider] - Patient Instructions: Chronic Obstructive Pulmonary Disease (ED) Activity Restrictions/Additional Instructions: As we have discussed ideally you would follow-up with your mobile heavy equipment operator Dr. Sainz however you have indicated that you do not want to see him again. You have been made aware of the abnormal CT findings and the recommendation to have a repeat CT chest performed in 3 months for follow-up. Please follow-up with your primary care provider early next week for reevaluation. Begin your antibiotics and steroid immediately. Return to the emergency department for worsening shortness of breath, difficulty breathing, chest pain, fevers, or any other concerns you may have. I hope you begin to feel better soon. Coding Level of Care Code ED Hr Administrative Assistant for Chg Fwd Exam Comprehensive
[2020-07-20] MEDS: ipratropium-albuterol 3 mL Neb INHALATION (10:17)
[2020-07-20 10:25] VITALS: PULSE 73; RESP 20; O2SAT 100
[2020-07-20 10:26] VITALS: BP 161/50; PULSE 73; RESP 18; TEMP 37.1; O2SAT 100; BMI 21.7
[2020-07-20 10:30] VITALS: BP 161/50; PULSE 73; RESP 18; O2SAT 98
[2020-07-20 10:35] VITALS: PULSE 78; RESP 20; O2SAT 98
[2020-07-20 10:39] LABS: ABG PCO2 58.6 mmHg (35-45); Alveolar-Arterial Oxygen Gradi 3.4 mmHg (5-10); Arterial Blood Gas Hematocrit 38.7 % (37-47); Base Excess ABG 8.9 mmol/L (-2.0-2.0); Blood Gas Operator Identificat AMH; Blood Gas Sample Site Brachial, left; Blood Gas Sample Type Arterial; Carboxyhemoglobin 1.7 %THgb (0.4-20.1); HCO3 ABG 35.8 mmol/L (22-26); HGB O2 Sat 96.4 % (95-100); Ionized Calcium Level - ABG 1.3 mmol/L (1.1-1.4); Methemoglobin 0.8 % (0.4-1.5); Oxygen Device NC; Oxygen Saturation ABG 98.8; Potassium Level - ABG 4.4 mmol/L (3.5-5.0); Total Hemoglobin 12.6 g/dL (12-16)
[2020-07-20 10:46] LABS: Basophils # 0.1 10^3/uL (0.0-0.1); Basophils % 0.6 %; Eosinophils # 0.2 10^3/uL (0.0-0.8); Eosinophils % 1.6 %; Hematocrit 39.7 % (37.0-47.0); Hemoglobin 12.5 g/dL (11.5-15.3); Lymphocytes # 1.6 10^3/uL (0.8-4.8); Lymphocytes % 14.6 %; Mean Corpuscular HGB Conc 31.5 g/dL (30.0-36.0); Mean Corpuscular Hemoglobin 30.6 pg (28.0-34.0); Mean Corpuscular Volume 97.3 fL (81-99); Mean Platelet Volume 9.8 fL (7.4-10.4); Monocytes # 0.7 10^3/uL (0.2-0.9); Monocytes % 6.2 %; Neutrophils # 8.27 10^3/uL (1.8-7.7); Neutrophils % 76.7 %; Nucleated Red Blood Cells % 0 %; Platelet Count 334 10^3/cmm (130-400); Red Blood Count 4.08 10^6/uL (4.1-5.3); Red Cell Distribution Width 12.7 % (12.1-15.1); White Blood Count 10.8 10^3/uL (4.0-10.0)
[2020-07-20 11:12] LABS: NT Pro B Type Natriuretic Pept 273 pg/mL (0-450); Procalcitonin 0.05 ng/mL (0-0.5)
--- NOTE | 2020-07-20 11:15 | CT_ITS ---
WS: [id number] CT CHEST WITH INTRAVENOUS CONTRAST HISTORY: Possible RIGHT apical soft tissue. TECHNIQUE: Contiguous 5 mm axial imaging performed on the thorax. Coronal and sagittal reformats are submitted. All CT scans at [facility] use at least one of these dose optimization techniq ues: automated exposure control; mA and/or kV adjustment per patient size (includes targeted exams wh ere dose is matched to clinical indication); or iterative reconstruction. CONTRAST: Omnipaque 300; 95 mL IV. DLP: 322.62 mGy.cm COMPARISON: 06/10/2014 and chest radiograph 07/20/2020 Lungs and central airway: Marked chronic emphysematous changes. Centrilobular emphysema, no mass at t he RIGHT apex. There is bilateral pulmonary apical fibrosis. Linear area of increasing opacification in the posterior RIGHT upper lobe measures 10 x 21 mm. There is soft tissue stranding which has progr essed since 2014 associated with a small cyst and bronchiectasis. Benign granuloma RIGHT lower lobe. Pleura: Normal. No pleural effusion. Heart and pericardium: Mildly enlarged LEFT heart chambers. No pericardial effusion. Mediastinum and anne-marie: No mediastinum or hilar adenopathy. Vessels: Moderate atherosclerosis aorta. No aneurysm. Normal size pulmonary artery. Chest wall and lower neck: No soft tissue masses. Upper abdomen: Suprarenal atherosclerosis aorta. Very mild thickening of the LEFT adrenal limbs simil ar to the prior study. Moderate size hiatal hernia. Marked constipation at the hepatic flexure. Osseous structures: No osteoblastic or osteolytic bone disease. CT/CT chest w con* [id number] IMPRESSION: 1. No RIGHT apical fibrosis or neoplasm. 2. Moderately severe chronic centrilobular emphysema. 3. Mild increase in irregular opacification in the posterior RIGHT upper lobe since 2014. Slow-growing neoplasm is not excluded. Recommend follow-up chest CT in 3 months with IV contrast. 4. Atherosclerosis aorta.
[2020-07-20 11:28] LABS: Alanine Aminotransferase 14 U/L (0-33); Albumin Level 4.2 g/dL (3.5-5.2); Alkaline Phosphatase 57 IU/L (35-105); Anion Gap 9.7 (5-19); Aspartate Amino Transferase 18 U/L (0-32); Blood Urea Nitrogen 13 mg/dL (8-23); Calcium 9.4 mg/dL (8.5-10.5); Carbon Dioxide 36 mmol/L (22-29); Chloride 94 mmol/L (98-107); Globulin 3.1 g/dL (1.3-4.6); Glucose 121 mg/dL (65-115); Osmolality Calculated 281 mOsm/kg (285-295); Potassium 4.7 mmol/L (3.5-5.1); Sodium 135 mmol/L (136-145); Total Bilirubin 0.3 mg/dL (0.15-1.2); Total Protein 7.3 g/dL (6.6-8.7)
[2020-07-20] MEDS: diphenhydrAMINE 50 mg/mL SDV 1mL 25 MG IVP (11:34)
[2020-07-20] MEDS: iohexol 300 mg/mL 100 mL Btl IV (12:00)
[2020-07-20 13:37] VITALS: BP 153/54; PULSE 76; RESP 25; O2SAT 99
== END 2020-07-20 13:38 | disposition home or self-care (01) ==
PROVIDERS: Emergency Provider Physician Assistant; PCP Family Medicine
DX: J44.1 Chronic obstructive pulmonary disease with (acute) exacerbation (principal); E78.5 Hyperlipidemia, unspecified; I10 Essential (primary) hypertension; F17.210 Nicotine dependence, cigarettes, uncomplicated
CPT/HCPCS: 36600; 71045; 71260; 80051; 80053; 82330; 82805; 83880; 84145; 85025; 94640; 96374; 96375; 99283; 99291; J1200; J2930; Q9967